=== PATIENT | male | born 1950 | race Caucasian/White ===

== ENCOUNTER → 2019-10-15 13:46 | Outpatient (CLI) | payer MEDICARE, SELFPAY ==
--- NOTE | ~2019-10-15 | MR_ITS ---
EXAMINATION: MR knee RT wo con DATE: 10/15/2019 14:36 INDICATION: Right knee pain TECHNIQUE: Magnetic resonance imaging (MRI) of the right knee was performed without intravenous contr ast. Sequences included coronal PD-weighted FSE, coronal PD-weighted FS FSE, sagittal T2-weighted FS E, sagittal PD-weighted FS FSE and axial PD weighted fat saturated FSE. COMPARISON: None. FINDINGS: Medial compartment: Complex tear at the posterior horn of the medial meniscus which extends obliquely on all 3 planes fro m the free edge to at least the junction of the middle and peripheral thirds of the meniscus. Articul ar cartilage is normal. Lateral compartment: Lateral meniscus is normal. Articular cartilage is normal. Patellofemoral compartment: Full/near full-thickness chondral ulceration at the medial side of the lateral trochlea, trochlear gr oove and extending across the medial trochlea. There is underlying cortical irregularity with both renae barticular cystic changes and small central osteophytes throughout the region of ulceration. Patellar cartilage appears relatively preserved. Ligaments and tendons: Anterior and posterior cruciate ligaments are normal. The medial collateral ligament and fibular jenna ateral ligament complex are normal. Mild distal quadriceps tendinopathy with small enthesopathic ossi cles within the tendon at its patellar insertion. Similarly there is mild proximal and distal patella r tendinopathy with large heterotopic ossicles in the distal patellar tendon which could be either en thesopathic or sequela of chronic [place]-Schlatter's disease. The visualized medial and lateral hamst ring tendons as well as the iliotibial band are normal. Fluid: Small right knee joint effusion. Small Browne's cyst. No loose osteochondral bodies identified. Osseous/other: Bone alignment is normal. No fracture or pathologic marrow replacing process. Subcutaneous varicositi es on both the medial lateral aspects of the knee. IMPRESSION: 1. Complex medial meniscal tear. 2. Extensive high-grade trochlear chondromalacia. 3. Chronic enthesopathy at the patellar and anterior tibial tuberosity insertions of the distal quadr iceps and patellar tendons. 4. Likely reactive small right knee joint effusion. Reviewed, dictated and finalized at location A. IMPRESSION: 1. Complex medial meniscal tear. 2. Extensive high-grade trochlear chondromalacia. 3. Chronic enthesopathy at the patellar and anterior tibial tuberosity insertio ns of the distal quadriceps and patellar tendons. 4. Likely reactive small right knee joint effusion.
== END ==
PROVIDERS: PCP Internal Medicine; Visit Provider Internal Medicine
DX: S83.231A Complex tear of medial meniscus, current injury, right knee, initial encounter (principal); X58.XXXA Exposure to other specified factors, initial encounter; M25.461 Effusion, right knee
CPT/HCPCS: 73721

== ENCOUNTER 2019-10-18 14:13 | Outpatient (CLI) | payer MEDICARE, SELFPAY ==
--- NOTE | ~2019-10-18 | CT_ITS ---
EXAMINATION: CTA chest PE protocol DATE: 10/18/2019 15:13 INDICATION: Shortness of breath TECHNIQUE: Computed tomography angiography (CTA) of the chest was performed with 100 mL Omnipaque-350 intravenous contrast timed to evaluate the pulmonary arteries. Coronal maximum intensity projection 3D-reconstructions were created by the technologist. The dose-length product (DLP) was 1051.15 mGy-cm . Automated exposure control and iterative reconstruction technique were employed. COMPARISON: None. FINDINGS: The pulmonary arteries are well-opacified. No pulmonary embolism is identified. There is mi ld dependent atelectasis. No pleural effusion or pneumothorax is identified. The heart size is normal . There are no pathologically enlarged thoracic lymph nodes. Calcified coronary artery atherosclerosi s is noted. There is a 2.8 cm cyst of the right kidney upper pole. There are bridging osteophytes at multiple levels in the spine, consistent with diffuse idiopathic skeletal hyperostosis (DISH). IMPRESSION: 1. No pulmonary embolism or acute cardiopulmonary abnormality. Reviewed, dictated and finalized at location A.
[2019-10-18 15:07] LABS: Estimated Glomerular Filt Rate 60
== END 2019-10-18 14:14 | disposition home or self-care (01) ==
PROVIDERS: PCP Internal Medicine; Visit Provider Internal Medicine
DX: R06.02 Shortness of breath (principal); R79.89 Other specified abnormal findings of blood chemistry; R06.09 Other forms of dyspnea
CPT/HCPCS: 36415; 71275; Q9967

== ENCOUNTER → 2020-09-09 17:52 | Outpatient (CLI) | payer MEDICARE, SELFPAY ==
--- NOTE | ~2020-09-09 | XR_ITS ---
XR shoulder RT min 2V DATE: 09/09/2020 18:09 INDICATION: Right shoulder pain TECHNIQUE: 4 views COMPARISON: 10/02/2018 right shoulder FINDINGS: There is mild right glenohumeral osteoarthritis. No fracture or dislocation, periosteal re action or bone destruction. There is mild right rotator cuff calcification, suggesting rotator cuff tendinitis. IMPRESSION: Mild right glenohumeral osteoarthritis Mild rotator cuff calcifications, suggesting possible rotator cuff tendinitis Reviewed, dictated and finalized at location B.
== END ==
PROVIDERS: PCP Internal Medicine; Visit Provider Internal Medicine
DX: S46.811A Strain of other muscles, fascia and tendons at shoulder and upper arm level, right arm, initial encounter (principal); M19.011 Primary osteoarthritis, right shoulder
CPT/HCPCS: 73030

== ENCOUNTER 2021-02-12 12:59 | Emergency (ER) | payer MEDICARE, SELFPAY ==
--- NOTE | ~2021-02-12 | XR_ITS ---
EXAMINATION: XR knee LT 3V DATE: 02/12/2021 13:31 INDICATION: Lateral left knee pain with palpable pop while stretching TECHNIQUE: AP, lateral and sunrise of the left knee were obtained COMPARISON: None. FINDINGS: No fracture. Severe joint space narrowing at the lateral aspect of the patellofemoral compartment wit h 5 mm lateral patellar subluxation. Alignment is otherwise normal. Moderate joint space narrowing in the medial compartment and moderate size marginal osteophytes in all 3 compartments. No left knee bony int effusion. Basilar calcific a cyst along the popliteal artery extending to the arteries of the vis ualized proximal calf. Soft tissues are otherwise unremarkable. IMPRESSION: 1. Left knee tricompartmental osteoarthritis, severe at the lateral side of the patellofemoral compar tment Reviewed, dictated and finalized at location A. IMPRESSION: 1. Left knee tricompartmental osteoarthritis, severe at the lateral side of the patellofemoral compartment
--- NOTE | 2021-02-12 13:10 | ED.GENADULT ---
HPI - General Adult General Chief complaint: Extremity Problem,Nontraumatic Stated complaint: Left Knee Pain Source: patient Mode of arrival: ambulatory Limitations: no limitations History of Present Illness HPI narrative: 70 y/o male. PMHx COPD, HTN, A-FIB (On oral Eliquis regimen), DM II, CKD, Obesity, KAN. Presents to [facility] today with acute complaints LT knee pain, worsening in the past 1 week. Pt reports to have been sitting in a chair at his dining table, when he reached up toward the counter to grab an item from it, and felt a sudden sharp pain to his lateral knee. He tells me the pain has been present since, intermittent, and worse when he bends his knee. The pain is slightly improved when he straightens his leg. No falls or bony injury has been relayed. No calf pain, dyspnea, palpitations, chest pain, dyspnea. No loss of lower extremity sensation or control. He has been taking home Tylenol with some relief. No additional acute c/o illness has been relayed upon PE. Related Data Home Medications Medication Instructions Recorded Confirmed blood sugar diagnostic #10 each 04/10/19 09/25/20 fluticasone propionate 50 1 spray NASAL DAILY 04/10/19 02/12/21 mcg/actuation nasal spray,suspension glucosamine 375 [id number] 1 tablet PO DIRECTED 04/10/19 02/12/21 no1 500 mg-C 15 mg-jazzy 0.5 mg tablet papaverine 30 mg-phentolamine 1 1 ml I-CAVERN DIRECTED 04/10/19 02/12/21 mg/mL in water intracavernosal soln rivaroxaban 20 mg tablet 20 mg PO QPM 04/10/19 02/12/21 testosterone 2 pump TRANSDERM DAILY gm 06/14/19 02/12/21 Allergies Allergy/AdvReac Type Severity Reaction Status Date / Time Quinolones Allergy Intermediate halucinatio Verified 02/12/21 13:07 ns aspirin Allergy Unknown Unknown Verified 02/12/21 13:07 ibuprofen Allergy Unknown Anaphylaxis Verified 02/12/21 13:07 ketoprofen Allergy Unknown angioedema Verified 02/12/21 13:07 and diarrhea Sulfa (Sulfonamide Allergy Unknown Unknown Verified 02/12/21 13:07 Antibiotics) sulfamethizole Allergy Unknown Unknown Verified 02/12/21 13:07 trimethoprim Allergy Unknown Unknown Verified 02/12/21 13:07 HYDROCODONE BIT Allergy Unknown vomiting Uncoded 02/12/21 13:07 blood Review of Systems Review of Systems: CONSTITUTIONAL: Denies fever, chills, sweats. EYES: Denies visual changes, redness, discharge. ENT: Denies rhinorrhea, congestion, sore throat, otalgia. CARDIOVASCULAR: Denies chest pain, palpitations, edema. RESPIRATORY: Denies dyspnea, wheezing, cough GASTROINTESTINAL: Denies abdominal pain, nausea, vomiting, diarrhea. GENITOURINARY: Denies dysuria, hematuria, abnormal discharge SKIN: Denies rash or itching. MUSCULOSKELETAL: Denies acute back pain, or myalgia. Left knee pain. NEUROLOGIC: Denies numbness, or focal weakness. PSYCHIATRIC: Denies anxiety or depression. All systems reviewed & are unremarkable except as noted in HPI and below PMFSH Past Medical History Medical History (Updated 02/12/21 @ 13:49 by MEHDI Rosas) Abnormal results of kidney function studies Afib Angioedema Asthma Benign essential HTN Bradycardia CVA (cerebral vascular accident) HTN (hypertension) Family History Family History Mother Family history of congestive heart failure Social History Social History Smoking status: Never smoker Alcohol intake: current Drinks per week: 2 Alcohol use details: occasionally, beer Substance use: never Substance use type: does not use Gender identity (if verbalized by the patient): Male Exam Narrative: GENERAL: This is a well-nourished, well-developed adult, in no apparent distress. HEAD: normocephalic. EYES: PERRL. EARS: External ears normal. NOSE: External nose normal. THROAT: Mucous membranes moist. NECK: Neck sup
[2021-02-12 13:12] VITALS: BP 130/69; PULSE 101; RESP 20; TEMP 36.6; O2SAT 98
== END 2021-02-12 14:05 | disposition home or self-care (01) ==
PROVIDERS: Emergency Provider Nurse Practitioner Adult Health; PCP Internal Medicine
DX: S83.92XA Sprain of unspecified site of left knee, initial encounter (principal); X50.9XXA Other and unspecified overexertion or strenuous movements or postures, initial encounter; J44.9 Chronic obstructive pulmonary disease, unspecified; I48.91 Unspecified atrial fibrillation; Z79.01 Long term (current) use of anticoagulants; I12.9 Hypertensive chronic kidney disease with stage 1 through stage 4 chronic kidney disease, or unspecified chronic kidney disease; E11.22 Type 2 diabetes mellitus with diabetic chronic kidney disease; N18.9 Chronic kidney disease, unspecified; E66.9 Obesity, unspecified; G47.33 Obstructive sleep apnea (adult) (pediatric); Z86.73 Personal history of transient ischemic attack (TIA), and cerebral infarction without residual deficits
CPT/HCPCS: 73562; 99213; G0463; L1830

== ENCOUNTER → 2021-04-28 02:49 | Outpatient (CLI) | payer MEDICARE, SELFPAY ==
[2021-04-29 20:49] LABS: SARS-CoV-2 RNA PCR Positive
== END ==
PROVIDERS: PCP Internal Medicine; Visit Provider Internal Medicine
DX: U07.1 COVID-19 (principal)
CPT/HCPCS: C9803; U0003; U0005

== ENCOUNTER → 2021-06-15 09:29 | Outpatient (CLI) | payer MEDICARE, SELFPAY ==
[2021-06-15 17:03] LABS: SARS-CoV-2 RNA PCR Negative
== END ==
PROVIDERS: PCP Internal Medicine; Visit Provider Internal Medicine
DX: R68.89 Other general symptoms and signs (principal); Z20.822 Contact with and (suspected) exposure to COVID-19
CPT/HCPCS: C9803; U0003; U0005

== ENCOUNTER 2021-06-15 19:51 | Inpatient (IN) | payer MEDICARE, SELFPAY ==
[2021-06-15] VITALS (11 sets, daily range): BP systolic 90–164; BP diastolic 58–88; PULSE 105–132; RESP 17–28; TEMP 37.3–39.6; O2SAT 93–96
--- NOTE | ~2021-06-15 | XR_ITS ---
EXAMINATION: XR chest 1V portable INDICATION: Cough and fever TECHNIQUE: Portable AP chest at 2142 hours COMPARISON: 10/02/2018 FINDINGS: There are bilateral perihilar opacities and opacities of the mid and lower lung zones. No p leural effusion or pneumothorax is identified. The cardiomediastinal silhouette is stable. IMPRESSION: 1. Bilateral perihilar and mid and lower lung zone opacities, consistent with pneumonia/or pulmonary edema. Reviewed, dictated and finalized at location F. DESIGNER IMPRESSION: 1. Bilateral perihilar and mid and lower lung zone opacities, consistent with p neumonia/or pulmonary edema.
--- NOTE | ~2021-06-15 | CT_ITS ---
EXAMINATION: CT chest abdomen pelvis wo con DATE: 06/18/2021 13:54 INDICATION: Hematuria. Fever. TECHNIQUE: Computed tomography (CT) of the chest, abdomen, and pelvis was performed without intraveno us contrast. Automated exposure control and iterative reconstruction technique were employed. The dos e-length product was 2121.74 mGy-cm. COMPARISON: Chest CT 10/18/2019, CT abdomen and pelvis 03/01/2019 FINDINGS: CHEST CT: There is mild atelectasis in the lungs. There are airspace opacities and groundglass opacities in api coposterior segment left upper lobe and left lower lobe with air bronchograms, consistent with pneumo matthew. There are small pleural effusions. The heart size is normal. There are coronary artery calcifica tions. No pericardial effusion. There are bridging endplate osteophytes at multiple levels in the spi ne, consistent with diffuse idiopathic skeletal hyperostosis (DISH). ABDOMEN/PELVIS CT: The liver, gallbladder, spleen, pancreas, adrenal glands, and left kidney are normal. There is a 3.1 cm cyst in right kidney. There is no urolithiasis. The prostate is mildly enlarged. There is divertic ulosis of the colon without evidence of diverticulitis. There are no dilated loops of bowel. The appe ndix is not visualized. There are no pathologically enlarged lymph nodes. There is no free intraperit maddox fluid. There is lumbar levoscoliosis and severe spondylosis. IMPRESSION: 1. Left-sided pneumonia. 2. Small pleural effusions. Reviewed, dictated and finalized at location A. RHOUSE ELECTRICIAN APPRENTICE
--- NOTE | ~2021-06-15 | XR_ITS ---
EXAMINATION: XR chest 1V portable EXAM DATE: 06/20/2021 13:49 INDICATION: SOB TECHNIQUE: Portable AP frontal chest x-ray was obtained. Comparison is made to prior examination from 06/17/2021. FINDINGS: Some ill-defined bilateral suprahilar and left lower lobe airspace disease, edema or pneumo matthew. Improvement in the previously seen right-sided airspace disease. No sizable pleural effusion. No pneumothorax. The cardiomediastinal silhouette is prominent but magnified on this AP technique. Ther e is no pneumothorax suspected. There are no osseous abnormalities identified. IMPRESSION: Bilateral pneumonia or edema with interval improvement. Reviewed, dictated and finalized at location A. TRADES ASSISTANTS
--- NOTE | ~2021-06-15 | XR_ITS ---
EXAMINATION: XR chest 1V portable DATE: 06/17/2021 09:19 INDICATION: Pneumonia, cough and fever TECHNIQUE: frontal view of the chest was obtained. COMPARISON: Chest radiograph dated 06/15/21 FINDINGS: Persistent opacities in the bilateral mid and lower lung zones most prominent in the left perihilar r egion. No pleural effusion or pneumothorax. The cardiomediastinal silhouette is normal. IMPRESSION: 1. No significant change in opacities in bilateral mid and lower lung zones with left perihilar predo minance consistent with pneumonia and/or pulmonary edema. Reviewed, dictated and finalized at location A. TRICAL ASSISTANT IMPRESSION: 1. No significant change in opacities in bilateral mid and lower lung zones wit h left perihilar predominance consistent with pneumonia and/or pulmonary edema.
--- NOTE | 2021-06-15 21:28 | ECG_ITS ---
Measurements Intervals Gepp Rate: 107 P: RI: 0 QRS: 1 QRSD: 117 T: 24 QT: 346 QTc: 464 Interpretive Statements ATRIAL FIBRILLATION WITH RAPID VENTRICULAR RESPONSE INTRAVENTRICULAR CONDUCTION DELAY BASELINE ARTIFACT- I, II, III, AVR, AVL, AVF, V2-V6 ABNORMAL ECG Electronically Signed On 06-16-2021 6:16:16 [employer]CISION FARMING SPECIALIST by Charlie Gonzalez D.O.
--- NOTE | 2021-06-15 21:30 | ED.FEVER ---
HPI - Fever General Chief Complaint: Fever Stated Complaint: headach, fever, vomiting Time Seen by Provider: 06/15/21 21:21 Source: patient Mode of arrival: ambulatory Limitations: no limitations History of Present Illness HPI Narrative: Patient is a 71-year-old male complaining of fever, shortness of breath, body aches, cough, headache and nausea started 3 days ago. Patient states that the shortness of breath is worse with exertion. Patient states that he had a rapid Covid test today and it was negative. Patient states that he is fully vaccinated from COVID along with a booster. Related Data Home Medications Medication Instructions Recorded Confirmed blood sugar diagnostic #10 each 04/10/19 09/25/20 fluticasone propionate 50 1 spray NASAL DAILY 04/10/19 02/12/21 mcg/actuation nasal spray,suspension glucosamine 375 [id number] 1 tablet PO DIRECTED 04/10/19 02/12/21 no1 500 mg-C 15 mg-jazzy 0.5 mg tablet papaverine 30 mg-phentolamine 1 1 ml I-CAVERN DIRECTED 04/10/19 02/12/21 mg/mL in water intracavernosal soln rivaroxaban 20 mg tablet 20 mg PO QPM 04/10/19 02/12/21 testosterone 2 pump TRANSDERM DAILY gm 06/14/19 02/12/21 Allergies Allergy/AdvReac Type Severity Reaction Status Date / Time aspirin Allergy Severe Swelling Verified 06/15/21 20:15 of Lip/Tongue/Throat ibuprofen Allergy Severe Anaphylaxis Verified 06/15/21 20:15 ketoprofen Allergy Severe angioedema Verified 06/15/21 20:15 and diarrhea Quinolones Allergy Intermediate halucinatio Verified 06/15/21 20:15 ns Sulfa (Sulfonamide Allergy Unknown Unknown Verified 06/15/21 20:15 Antibiotics) sulfamethizole Allergy Unknown Unknown Verified 06/15/21 20:15 trimethoprim Allergy Unknown Unknown Verified 06/15/21 20:15 HYDROCODONE BIT Allergy Severe vomiting Uncoded 06/15/21 20:15 blood Review of Systems Review of Systems: All systems reviewed & are unremarkable except as noted in HPI and below Constitutional: Constitutional: Denies excessive sweating, Denies fatigue, Denies lethargy, Denies weakness and Denies weight loss Eyes: Eyes: Denies blurry vision, Denies change in vision and Denies loss of vision ENT: Denies dizziness, Denies ear discharge, Denies headache(s), Denies lip swelling, Denies epistaxis, Denies nasal congestion, Denies neck pain, Denies throat swelling and Denies tongue swelling Cardiovascular: Cardiovascular: Denies chest pain, Denies chest pain at rest, Denies chest pain with activity, Denies diaphoresis, Denies rapid heart rate, Denies edema, Denies irregular heart rhythm, Denies lightheadedness and Denies palpitations Respiratory: Respiratory: Denies chest congestion and Denies hemoptysis Gastrointestinal: Gastrointestinal: Denies abdominal pain, Denies melena, Denies hematochezia, Denies diarrhea, Denies nausea, Denies vomiting and Denies hematemesis Musculoskeletal: Musculoskeletal: Denies abnormal gait, Denies deformity, Denies joint swelling, Denies limited range of motion, Denies neck pain and Denies numbness Neurologic: Denies Abnormal speech present, Denies abnormal gait, Denies confusion, Denies dizziness, Denies focal weakness, Denies loss of vision, Denies numbness, Denies Other visual disturbances, Denies Sensory deficit (Neuro) and Denies weakness Psychiatric: Psychiatric: Denies confusion, Denies depression, Denies auditory hallucinations, Denies homicidal ideation and Denies suicidal ideation Endocrine: Endocrine: Denies cold intolerance, Denies excessive sweating, Denies fatigue, Denies heat intolerance and Denies palpitations Hematologic/Lymphatic: Hematologic/Lymphatic: Denies easy bleeding and Denies easy bruising Allergic/Immunologic: Allergic/Immunologic: Denies lip swelling, Denies throat swelling and Denies tongue swelling PMFSH Past Medical History Medical History (Updated 06/15/21 @ 23:22 by Isak Jensen MD) Abnormal results of kidney function studies Lottie
[2021-06-15] MEDS: ACETAMINOPHEN 500 MG TABLET 1000 MG PO (21:36)
[2021-06-15] MEDS: SODIUM CHLORIDE 0.9% IV 1,000 ML 999 ML IV CONT (21:36)
[2021-06-15 22:28] LABS: Basophils Absolute Auto 0.1 K/mm3 (0.0-0.1); Basophils Percent Auto 0.4 % (0.2-1.2); Hematocrit 44.6 % (42.0-52.0); Hemoglobin 15.1 g/dL (14.0-18.0); Immature Granulocyte Absolute 0.08 K/mm3 (0.00-0.031); Immature Granulocyte Percent A 0.6 % (0-0.5); Lymphocytes Absolute Auto 0.66 K/mm3 (0.9-3.2); Lymphocytes Percent Auto 4.9 % (18.3-44.2); Mean Corpuscular HGB Conc 33.9 g/dl (32-36); Mean Corpuscular Hemoglobin 30.8 pg (26-34); Mean Platelet Volume 9.8 fl (7.4-10.4); Monocytes Absolute Auto 1.7 K/mm3 (0.1-0.6); Monocytes Percent Auto 12.6 % (2.6-8.5); Neutrophils Absolute Auto 11.1 K/mm3 (1.3-6.7); Neutrophils Percent Auto 81.5 % (45.5-73.1); Platelet Count Result 208 k/mm3 (150-375); Red Cell Distribution Width 14.1 % (11.5-14.5); White Blood Count 13.6 K/mm3 (4.5-10.0)
[2021-06-15 22:33] LABS: Add Urine Microscopic? YES; Appearance Urine Clear (Clear); Bilirubin Urine Negative (Negative); Blood Urine 2+ (Negative); Color Urine Amber (Yellow); Glucose Urine UA Negative (Negative); Ketones Urine Trace mg/dL (Negative); Leukocyte Esterase Ur Negative LEU/UL (Negative); Mucus Urine Rare /lpf; Nitrate Urine Negative (Negative); Protein Urine 2+ mg/dL (Negative); Specific Grav Ur 1.026 (1.001-1.035); Squamous Epithelial Cell Urine Rare /hpf (Few); WBC Urine 0-3 /hpf
[2021-06-15 22:43] LABS: INR 1.4; Prothrombin Time 16.4 Seconds (11.1-14.7)
[2021-06-15 22:44] LABS: Partial Thromboplastin Time 35.4 SECONDS (22.3-36.8)
[2021-06-15 22:55] LABS: Alanine Aminotransferase 27 U/L (4-50); Albumin Level 3.9 g/dL (3.5-5.1); Alkaline Phosphatase 68 U/L (38-126); Anion Gap 11 mmol/L (8-16); Aspartate Amino Transferase 41 U/L (17-59); Bilirubin,Total 1.2 mg/dL (0.2-1.3); Blood Urea Nitrogen 24 mg/dL (9-20); CRP 26.4 mg/dL (<1.0); Calcium 8.7 mg/dL (8.4-10.2); Carbon Dioxide 19 mmol/L (22-30); Chloride 100 mmol/L (98-107); Estimated CRCL calculation 75 ml/min; Estimated Glomerular Filt Rate 60; Glucose 163 mg/dL (65-110); Potassium 3.8 mmol/L (3.4-5.0); Sodium 130 mmol/L (137-145)
[2021-06-15 23:12] LABS: SARS-CoV-2 RNA PCR Negative
--- NOTE | 2021-06-15 23:14 | PC.NURSE ---
Assuming care of pt.
[2021-06-16] VITALS (31 sets, daily range): BP systolic 103–145; BP diastolic 57–89; PULSE 89–116; RESP 14–26; TEMP 36.9–38.7; O2SAT 93–98; BMI 43.5
[2021-06-16] MEDS: DEXAMETHASONE SOD PHOS INJ 4 MG/ML VIAL 10 MG IV PUSH (00:18)
[2021-06-16] MEDS: ALBUTEROL SULFATE NEB 2.5 MG/0.5 ML INH 5 MG INHALATION ×2 (02:05→08:51)
[2021-06-16] MEDS: IPRATROPIUM BR 0.02% INH SOLN 0.5 MG/2.5 ML VIAL INHALATION ×4 (02:05→19:46)
--- NOTE | 2021-06-16 05:01 | PC.NURSE ---
03:17 This patient, Devante Mitchell, was admitted to IMU status, and placed in Intensive Care Unit-4. Patient/family oriented to hospital policies and general routines including ID bracelet, bed and alarms, visiting hours, pain management, procedures, bathroom and other care routines, personal items, smoking policy, room service/diet, and visiting hours. Valuables list has been completed. Information on how to activate the Rapid Response Team has been discussed. Patient/Family are encouraged to report perceived risks to care and to ask questions if they do not understand what they are told or what they should do.
--- NOTE | 2021-06-16 11:07 | PM.IMHP ---
H&P: HPI History of Present Illness Date/Time: PATIENT TO BE ADMITTED UNDER OBSERVATION STATUS 06/16/21 11:07 Chief Complaint: Fever Narrative: 71yo male with asthma, chronic AFib on anticoag, HTN and KAN here for fevers. About 4 days prior to admission, patient developed headaches. A day or so later he developed fevers to as high as 103 at home. He feels diffusely weak. He was short of breath with exertion. No chest pain. No cough. He has some mild pedal edema but this is chronic. He has been feeling malaise. No anosmia or dysgeusia. He has had COVID vaccine with the booster with the last vaccine given in February. He is up-to-date on his flu vaccine. This been no sick contacts. No recent travels. No myalgias. Denies any dysuria or hematuria. No urinary frequency or urgency. He does complain of mid back pain which is new. No abdominal pain. He does feel nauseous and has had decreased oral intake over the past few days. He has had emesis but no hematemesis. No diarrhea constipation issues. No odynophagia or dysphagia. Sinus symptoms or URI symptoms. He has been diaphoretic this has been associated with fever. His symptoms progressed and he presented to the emergency room for evaluation. In the emergency room, he had a fever to 103.2 and a pulse rate of 132. He was tachypneic rate 28. White count elevated at 13.6 K. CRP was 26.4. Influenza was negative. COVID nasal swab was negative. UA had 2+ blood with 11-20 red cells but no white blood cells. Lactic acid was normal but his serum bicarb was 19 with a normal gap. Chest x-ray showed bilateral perihilar and mid and lower lung zone opacities consistent with pneumonia. Blood cultures were collected. He was given Rocephin and azithromycin. He was admitted for further care. Review of Systems Review of Systems: All systems reviewed & are unremarkable except as noted in HPI and below PMFSH Past Medical History Medical History (Updated 06/18/21 @ 17:22 by Pierre Stevens MD) Abnormal results of kidney function studies Afib chronic. Angioedema Associated with ASA and NSAIDs Asthma Benign essential HTN CVA (cerebral vascular accident) September 2018 with residual vision loss Hypogonadism Type 2 diabetes mellitus without complication, without long-term current use of insulin Family History Family History (Updated 06/16/21 @ 11:30 by Pierre Stevens MD) Mother Mesothelioma Father Family history of congestive heart failure Social History Social History (Updated 06/16/21 @ 11:31 by Pierre Stevens MD) Social History: Patient lives with his Lena. He is a full code. He smoked cigars until about 1987. Smoked 1-2 cigars per week on occasion. No drug use. Drinks 2 alcoholic drinks per week. Smoking status: Former smoker Alcohol intake: current Drinks per week: 2 Alcohol use details: occasionally, beer Substance use: never Substance use type: does not use Gender identity (if verbalized by the patient): Male Spiritual care concerns: No Meds Home Medications and Allergies Home Medications Medication Instructions Recorded Confirmed Type fluticasone propionate 50 1 spray NASAL DAILY 04/10/19 06/16/21 History mcg/actuation nasal spray,suspension glucosamine 375 [id number] 1 tablet PO DIRECTED 04/10/19 06/16/21 History no1 500 mg-C 15 mg-jazzy 0.5 mg tablet papaverine 30 mg-phentolamine 1 1 ml I-CAVERN DIRECTED 04/10/19 06/16/21 History mg/mL in water intracavernosal soln rivaroxaban 20 mg tablet 20 mg PO QPM 04/10/19 06/16/21 History testosterone 2 pump TRANSDERM DAILY gm 06/14/19 06/16/21 History albuterol sulfate 90 mcg/actuation 2 puff INHALATION Q4H PRN #6.7 g 07/01/20 06/16/21 Rx aerosol inhaler betamethasone valerate 0.1 % 1 applic TOPICAL DAILY PRN #45 g 09/25/20 06/16/21 Rx topical cream montelukast 10 mg tablet 10 mg PO DAILY #90 tablet 12/01/20 06/16/21 Rx
[2021-06-16 12:24] LABS: Glucose Point of Care 199 mg/dl (65-105)
[2021-06-16] MEDS: METOPROLOL SUCCINATE EXT REL 25 MG TABCR PO (12:29)
[2021-06-16] MEDS: ALBUTEROL SULFATE NEB 2.5 MG/0.5 ML INH INHALATION ×2 (14:48→19:46)
[2021-06-16 15:21] LABS: Creatinine Urine 167.7 mg/dL
[2021-06-16 15:26] LABS: Sodium Urine Random 14 meq/L
[2021-06-16] MEDS: RIVAROXABAN 20 MG TABLET PO (17:15)
[2021-06-16 17:57] LABS: Glucose Point of Care 142 mg/dl (65-105)
[2021-06-16] MEDS: AZITHROMYCIN 250 MG TABLET PO (20:42)
[2021-06-16] MEDS: ACETAMINOPHEN 325 MG TABLET 650 MG PO (20:42)
[2021-06-16 20:53] LABS: Glucose Point of Care 176 mg/dl (65-105)
[2021-06-17] VITALS (30 sets, daily range): BP systolic 132–154; BP diastolic 69–100; PULSE 88–155; RESP 14–26; TEMP 36.9–39.6; O2SAT 91–97
--- NOTE | 2021-06-17 | ECHO_ITS ---
Patient Info Name: Devante Mitchell Age: 71 years : 1950 Gender: Male Ht: 74 in Wt: 352 lbs BSA: 2.96 m2 HR: 123 bpm BP: 154 / 100 mmHg Heart Rhythm: Atrial Fibrillation Exam Date: 06/17/2021 1:44 PM Exam Location: [facility] Patient Status: Inpatient Admit Date: 06/17/2021 Staff Ordering Physician: Angelo Hutchinson MD Button Sewer: Colby Serra, SALINACS, RT Attending Provider: Marco A Kim MD Referring Physician: Jasper RÍOS; Exam Type: CA echo doppler color flow Study Info Indications I48.1 - Persistent atrial fibrillation R06.02 - Shortness of breath Complete two-dimensional, color flow and Doppler transthoracic echocardiogram is performed with contrast to opacify the left ventricle and to improve the deliniation of the left ventricle endocardial borders. Summary 1. Technically very difficult exam because of obesity. 2. Definity contrast injected to improve visualization of the left ventricle. 3. Normal appearing left ventricular systolic function. 4. Severely dilated left atrium. 5. Calcified mitral valve annulus. 6. Mild MR. Left Ventricle Left ventricular chamber dimension is normal. Left ventricular systolic function is normal, estimated at 50-55%. The left ventricular diastolic function is indeterminate. Right Ventricle Right ventricular chamber dimension is normal. Left Atria Left atrial chamber dimension is severely enlarged. Right Atria Right atrial chamber dimension is not well visualized. Aortic Valve The aortic valve is not well visualized. Pulmonic Valve The pulmonic valve is not well visualized. Mitral Valve The mitral valve has not well visualized. There is mild mitral valve regurgitation. Tricuspid Valve The tricuspid valve leaflets are not well visualized. Pericardium/Pleural The pericardium appears normal. Aorta The aortic root size at the sinus of Valsalva is not well visualized. Left Ventricular Outflow Tract Name Value Normal LVOT Doppler LVOT Peak Gradient 2 mmHg LVOT Mean Gradient 1 mmHg LVOT VTI 10 cm LVOT VTI/AV VTI Ratio 0.5 Mitral Valve Name Value Normal MV Doppler MV Decel [place] 771 cm/s2 MV PHT 43 ms MV Area (PHT) 5.1 cm2 4.0-5.0 MV Diastolic Function MV E Peak Velocity 115 cm/s MV A Peak Velocity 1 cm/s MV E/A 201.1 MV Decel Time 149 ms MV Annular TDI MV E/e' (Septal) 11.5 <=8.0 MV E/e' (Lateral) 8.0 <=8.0 MV E/e' (Average)
[2021-06-17] MEDS: ALBUTEROL SULFATE NEB 2.5 MG/0.5 ML INH INHALATION ×2 (01:45→08:12)
[2021-06-17] MEDS: IPRATROPIUM BR 0.02% INH SOLN 0.5 MG/2.5 ML VIAL INHALATION ×4 (01:45→20:28)
[2021-06-17 04:35] LABS: Basophils Percent Auto 0.3 % (0.2-1.2); Hematocrit 48.5 % (42.0-52.0); Hemoglobin 16.3 g/dL (14.0-18.0); Immature Granulocyte Absolute 0.05 K/mm3 (0.00-0.031); Immature Granulocyte Percent A 0.4 % (0-0.5); Lymphocytes Absolute Auto 0.99 K/mm3 (0.9-3.2); Lymphocytes Percent Auto 8.5 % (18.3-44.2); Mean Corpuscular HGB Conc 33.6 g/dl (32-36); Mean Corpuscular Hemoglobin 30.7 pg (26-34); Mean Corpuscular Volume 91.3 fl (80-100); Mean Platelet Volume 10.1 fl (7.4-10.4); Monocytes Absolute Auto 1.6 K/mm3 (0.1-0.6); Monocytes Percent Auto 13.6 % (2.6-8.5); Neutrophils Percent Auto 77.2 % (45.5-73.1); Platelet Count Result 232 k/mm3 (150-375); Red Blood Count 5.31 M/mm3 (4.6-6.20); Red Cell Distribution Width 14.5 % (11.5-14.5); White Blood Count 11.7 K/mm3 (4.5-10.0)
[2021-06-17 04:55] LABS: Anion Gap 7 mmol/L (8-16); Blood Urea Nitrogen 30 mg/dL (9-20); Calcium 8.4 mg/dL (8.4-10.2); Carbon Dioxide 29 mmol/L (22-30); Chloride 98 mmol/L (98-107); Creatine Kinase 464 U/L (55-170); Estimated CRCL calculation 80 ml/min; Estimated Glomerular Filt Rate 60; Glucose 150 mg/dL (65-110); Magnesium 2.5 mg/dL (1.6-2.3); Sodium 134 mmol/L (137-145)
[2021-06-17 05:03] LABS: CRP 25.2 mg/dL (<1.0)
[2021-06-17] MEDS: PRAVASTATIN SODIUM 20 MG TABLET PO (07:32)
[2021-06-17] MEDS: METOPROLOL SUCCINATE EXT REL 25 MG TABCR PO (07:32)
[2021-06-17] MEDS: MONTELUKAST SODIUM 10 MG TABLET PO (07:32)
[2021-06-17] MEDS: ACETAMINOPHEN 325 MG TABLET 650 MG PO ×3 (07:35→22:04)
[2021-06-17 08:15] LABS: Glucose Point of Care 144 mg/dl (65-105)
[2021-06-17] MEDS: METOPROLOL TARTRATE INJ 5 MG/5 ML VIAL IV PUSH (09:45)
[2021-06-17 12:44] LABS: Glucose Point of Care 192 mg/dl (65-105)
--- NOTE | 2021-06-17 13:08 | PM.IMPN ---
Progress Note: A&P Assessment and Plan (1) Sepsis: Code(s): A41.9 - Sepsis, unspecified organism Status: Acute Assessment and Plan: Sepsis present on admission with tachycardia, fever, tachypnea, leukocytosis and elevated CRP. Omega source of sepsis is pneumonia. Now with septicemia although consider contaminant as well. Blood cultures (1of2) positive for gram positive cocci in clusters. Continue Rocephin and azithromycin; add Vancomycin. Follow-up on blood and sputum culture results. Consider repeating BCx depending on the ID. Legionella and pneumococcal antigen pending. Monitor fever curve. If persistent fevers, consider Primaxin to cover Pseudomonas and/or ESBL. (2) Pneumonia: Qualifiers: Laterality: bilateral Lung location: unspecified part of lung Pneumonia type: due to unspecified organism Qualified Code(s): J18.9 - Pneumonia, unspecified organism Code(s): J18.9 - Pneumonia, unspecified organism Status: Acute Assessment and Plan: Chest x-ray reviewed personally. Most likely bacterial pneumonia. Patient without significant respiratory symptoms initially but now having cough. As above. (3) Atrial fibrillation with RVR: Code(s): I48.91 - Unspecified atrial fibrillation Status: Acute Assessment and Plan: Patient has chronic atrial fibrillation. He is intermittently tachycardia which is appropriate under the clinical situation (fevers). Continue to control his fever. Continue his metoprolol and Xarelto. Continue to monitor on telemetry. (4) Hyponatremia: Code(s): E87.1 - Hypo-osmolality and hyponatremia Status: Acute Assessment and Plan: Na 130. Could be related to HCTZ so this was held. Uine Na 14 with FENa 0.07%. He did receive fluids in the ED. Repeat Na 134 today. Follow. (5) Obstructive sleep apnea: Code(s): G47.33 - Obstructive sleep apnea (adult) (pediatric) Status: Chronic Assessment and Plan: Patient with obstructive sleep apnea and is compliant with his CPAP at home. Continue the same here. (6) Type 2 diabetes mellitus without complication, without long-term current use of insulin: Code(s): E11.9 - Type 2 diabetes mellitus without complications Status: Acute Assessment and Plan: Patient has diet-controlled DM. Last A1c was 6.4 in March. The patient's blood glucose was reviewed on 06/17 Glucose remains well controlled. Continue AccuCheks covering with sliding scale. Hypoglycemia protocol available as needed. Continue to monitor (7) Asthma: Code(s): J45.909 - Unspecified asthma, uncomplicated Status: Acute Assessment and Plan: No wheezing. Dexamethasone 10mg x 1 was given in the ED. Will hold his fluticasone and budesonide given that he has pneumonia. No peripheral eosinophilia noted. Continue to monitor. (8) Morbid (severe) obesity due to excess calories: Code(s): E66.01 - Morbid (severe) obesity due to excess calories Status: Acute Assessment and Plan: BMI 44. This is contributing to his other medical problems. Healthy lifestyle was encouraged. (9) DVT prophylaxis: Code(s): Z29.9 - Encounter for prophylactic measures, unspecified Status: Acute Assessment and Plan: Elaine Carranza Date/time seen: 06/17/21 13:08 Interval history: 71yo male with asthma, chronic AFib on anticoag, HTN and KAN here for fevers. Patient slept poorly related to noise. Having fevers again. Feels worse today. Cough is nagging. Exam Narrative: Tm 103.3 138/69 115 21 91% ra Gen - NARD but appears uncomfortable Chest - basilar rhonchi o/w clear, nml RR CV - irregularly irregular. Tele showing AFib with RVR Abd - soft, obese, NT Ext - no pedal edema Psych - normal mood and affect. Skin - warm and dry Objective Data Vital Signs Vital Signs: Vital Signs - 24 hr 06/16/21 14:00 06/16/21 14:50
[2021-06-17] MEDS: PERFLUTREN LIPID MICROSPHERES 1.5 ML VIAL DILUTED TO 10 ML TOTAL VOLUME IV PUSH (13:46)
--- NOTE | 2021-06-17 13:47 | IVDEFINITY ---
Prior to administration of IV Definity the patient was educated on the risks and benefits of the imaging enhancing agent including potential adverse side effects. The patient verbalized understanding. Allergies were verified. No exclusion criteria were identified and at least one of the following inclusion criteria were met: 1) physician request, 2) patient technically difficult to image (per the [place] [employer] guidelines of two or more segments not discernable within the apical view), or 3) questionable left ventricular function. ?
[2021-06-17] MEDS: guaiFENesin 12 HR 600 MG TABCR PO ×2 (14:09→21:45)
[2021-06-17] MEDS: PANTOPRAZOLE SODIUM IV 40 MG VIAL IV PUSH ×2 (14:10→21:45)
--- NOTE | 2021-06-17 14:56 | PCPTNOTE ---
Attempted PT evaluation, Per RN, patient needs to be held today due to HR being 180 bpm. Will continue to follow as patient can tolerate.
--- NOTE | 2021-06-17 16:16 | PM.CNCAR ---
Assessment and Plan Additional Plan This is a 71-year-old man with obesity hypoventilation sleep apnea syndrome with chronic atrial fibrillation as a result of that. Normally is quite stable on a modest dose of metoprolol and anticoagulation with Xarelto. He presents to the hospital with significant fever and in this setting his heart rate is more accelerated. I am going to try initially just advancing his metoprolol dosage and follow this along with you. At this point there are no other cardiac recommendations to make from what I can see. Rickey Pinto MD [facility] History of Present Illness History of Present Illness Consult date/time: 06/17/21 16:16 Consult reason: atrial fibrillation Reason For Visit: Pneumonia, Atrial Fib with RVR Narrative: This is a 71-year-old man who I know with a history of chronic atrial fibrillation for about 3 years. He is being seen in the request of the hospitalist today in the hospital because of rapid ventricular response at times. The patient does not have any cardiovascular symptoms at this time. I saw him initially in 2019 when he was in the hospital for noncardiac reasons and found to be in atrial fib. The patient does have morbid obesity and sleep apnea and this has etiology of his atrial fibrillation. At the time of initial diagnosis because he was asymptomatic and had no other structural cardiac problems rate control and anticoagulation strategy was chosen. He does see me in the office regularly for follow-up and has been asymptomatic. He only requires a very modest dose of metoprolol for rate control at 25 mg daily and he is anticoagulated with Xarelto. He came into the hospital yesterday because of fevers which began last week on . He states on through until this admission he has been having for a fevers every day between 101 and up over 103? F. he has been evaluated in the hospital so far his blood cultures on 1 bottle appears to be positive for Gram-positive cocci and a anaerobic bottle. His has noted that his urine looks very dark and somewhat bloody today. He is laying in his bed with his CPAP device on resting comfortably when I came in the room to see him. Apparently we have been consulted because when he is not at bed rest his heart rate becomes rapidly accelerated with heart rates in excess of 150. Lying supine in bed relaxing at this time is heart rate is 110. An echocardiogram has been ordered by the hospitalist service which was done earlier today and results are pending. Review of Systems Constitutional: Constitutional: Reports no additional constitutional complaints Eyes: Eyes: Reports no additional eye complaints ENT: Reports system reviewed and no additional complaints, except as documented Cardiovascular: Cardiovascular: Reports no additional cardiovascular complaints Respiratory: Respiratory: Reports no additional respiratory complaints Gastrointestinal: Gastrointestinal: Reports no additional gastrointestinal complaints Musculoskeletal: Musculoskeletal: Reports no additional musculoskeletal complaints Integumentary/Breasts: Skin/Breast: Reports system reviewed and no additional complaints, except as docu Neurologic: Reports system reviewed and no additional complaints, except as documented Endocrine: Endocrine: Reports no additional endocrine complaints Hematologic/Lymphatic: Hematologic/Lymphatic: Reports no additional hematologic/lymphatic complaints Allergic/Immunologic: Allergic/Immunologic: Reports no additional allergic/immunologic complaints PMFSH Past Medical History Medical History (Updated 06/16/21 @ 11:48 by Pierre Stevens MD) Abnormal results of kidney function studies Afib chronic. Angioedema Associated with ASA and NSAIDs Asthma Benign essential HTN CVA (cerebral vascular accident) September 2018 with residual vision loss Hypogonadism Type 2 diabetes mellitus without complication, without long-term current use of insulin
[2021-06-17] MEDS: RIVAROXABAN 20 MG TABLET PO (17:49)
[2021-06-17 17:52] LABS: Glucose Point of Care 162 mg/dl (65-105)
[2021-06-17] MEDS: cefTRIAXone 2 GM in SODIUM CHLORIDE 0.9% IV 100 ML 200 ML IVPB (21:44)
[2021-06-17] MEDS: AZITHROMYCIN 250 MG TABLET PO (21:45)
[2021-06-17 22:11] LABS: Glucose Point of Care 126 mg/dl (65-105)
[2021-06-18] VITALS (17 sets, daily range): BP systolic 117–147; BP diastolic 60–91; PULSE 82–124; RESP 14–29; TEMP 35.8–39; O2SAT 93–95
[2021-06-18] MEDS: IPRATROPIUM BR 0.02% INH SOLN 0.5 MG/2.5 ML VIAL INHALATION ×3 (01:29→21:05)
[2021-06-18 04:57] LABS: Basophils Absolute Auto 0.1 K/mm3 (0.0-0.1); Basophils Percent Auto 0.7 % (0.2-1.2); Eosinophils Absolute Auto 0.1 K/mm3 (0-0.3); Eosinophils Percent Auto 0.7 % (0-4.4); Hematocrit 45.7 % (42.0-52.0); Hemoglobin 15.5 g/dL (14.0-18.0); Immature Granulocyte Absolute 0.04 K/mm3 (0.00-0.031); Immature Granulocyte Percent A 0.5 % (0-0.5); Lymphocytes Absolute Auto 1.34 K/mm3 (0.9-3.2); Lymphocytes Percent Auto 16.3 % (18.3-44.2); Mean Corpuscular HGB Conc 33.9 g/dl (32-36); Mean Corpuscular Hemoglobin 31.1 pg (26-34); Mean Corpuscular Volume 91.8 fl (80-100); Monocytes Absolute Auto 1.4 K/mm3 (0.1-0.6); Monocytes Percent Auto 17.4 % (2.6-8.5); Neutrophils Absolute Auto 5.3 K/mm3 (1.3-6.7); Neutrophils Percent Auto 64.4 % (45.5-73.1); Platelet Count Result 205 k/mm3 (150-375); Red Blood Count 4.98 M/mm3 (4.6-6.20); Red Cell Distribution Width 14.5 % (11.5-14.5); White Blood Count 8.2 K/mm3 (4.5-10.0)
[2021-06-18 05:21] LABS: Alanine Aminotransferase 75 U/L (4-50); Albumin Level 3.4 g/dL (3.5-5.1); Alkaline Phosphatase 59 U/L (38-126); Anion Gap 8 mmol/L (8-16); Aspartate Amino Transferase 83 U/L (17-59); Bilirubin,Total 0.6 mg/dL (0.2-1.3); Blood Urea Nitrogen 26 mg/dL (9-20); Carbon Dioxide 27 mmol/L (22-30); Chloride 98 mmol/L (98-107); Estimated CRCL calculation 76 ml/min; Estimated Glomerular Filt Rate 55; Glucose 107 mg/dL (65-110); Potassium 3.9 mmol/L (3.4-5.0); Sodium 133 mmol/L (137-145)
[2021-06-18] MEDS: MONTELUKAST SODIUM 10 MG TABLET PO (09:38)
[2021-06-18] MEDS: METOPROLOL SUCCINATE EXT REL 50 MG TABCR PO (09:38)
[2021-06-18] MEDS: PRAVASTATIN SODIUM 20 MG TABLET PO (09:38)
[2021-06-18] MEDS: guaiFENesin 12 HR 600 MG TABCR PO ×2 (09:39→20:56)
[2021-06-18] MEDS: PANTOPRAZOLE SODIUM IV 40 MG VIAL IV PUSH ×2 (09:40→20:56)
[2021-06-18 09:49] LABS: Glucose Point of Care 165 mg/dl (65-105)
[2021-06-18] MEDS: ACETAMINOPHEN 325 MG TABLET 650 MG PO ×2 (09:56→16:00)
--- NOTE | 2021-06-18 10:55 | PC.NURSE ---
Transfer received from ICU room 4. Patient oriented to the room.
--- NOTE | 2021-06-18 10:59 | PC.NURSE ---
This patient, Deavnte Mitchell, was transferred to room 261 via wheelchair on 06/18/21 at 1100. Personal belongings sent with patient. Report given to Gloria. Appropriate documentation sent with patient.
[2021-06-18 11:38] LABS: Glucose Point of Care 154 mg/dl (65-105)
--- NOTE | 2021-06-18 11:59 | PM.PNCARD ---
Progress Note: A&P Additional Plan -atrial fibrillation with RVR -pneumonia. -diabetes -sleep apnea -morbid obesity This is 71-year-old patient with history of chronic atrial fibrillation presents with fevers. He is being treated for bilateral pneumonia. AFib was with rapid ventricular response. Dr. Pinto has increased his Toprol-XL from 25 mg daily to 50 mg daily. Heart rates between 100-110 beats per minute. He remains febrile. This is normal physiology corresponds to fever. At this time we will continue observation. Continue Xarelto. I expect once the fevers improve his heart rate will improve as well. Subjective Date/time seen: Date of service 06/18/21 11:59 Interval history: 71yo male with asthma, chronic AFib on anticoag, HTN and KAN here for fevers. Patient slept poorly related to noise. Having fevers again. Feels worse today. Cough is nagging. 06/18/2021. Resting comfortably in bed. Heart rate between 100-110 beats per minute. Denies shortness of breath or chest pain today. Review of Systems Constitutional: Constitutional: Reports no additional constitutional complaints Eyes: Eyes: Reports no additional eye complaints ENT: Reports system reviewed and no additional complaints, except as documented Cardiovascular: Cardiovascular: Reports no additional cardiovascular complaints Respiratory: Respiratory: Reports no additional respiratory complaints Gastrointestinal: Gastrointestinal: Reports no additional gastrointestinal complaints Musculoskeletal: Musculoskeletal: Reports no additional musculoskeletal complaints Integumentary/Breasts: Skin/Breast: Reports system reviewed and no additional complaints, except as docu Neurologic: Reports system reviewed and no additional complaints, except as documented Endocrine: Endocrine: Reports no additional endocrine complaints Hematologic/Lymphatic: Hematologic/Lymphatic: Reports no additional hematologic/lymphatic complaints Allergic/Immunologic: Allergic/Immunologic: Reports no additional allergic/immunologic complaints Exam Const: General: comfortable and no acute distress Other: Morbidly obese gentleman comfortable cooperative resting comfortably with his CPAP mask on HENMT: Mouth: Yes moist mucous membranes Eyes: Sclera: sclerae normal Pupils: Equal, round and reactive pupils present Neck: Neck: supple and no JVD Resp: Effort & Inspection: normal respiratory effort Auscultation: clear to auscultation bilaterally Cardio: Rhythm: abnormal rhythm irregularly irregular Other: PMI is not palpable S1-S2 irregular no audible murmur GI: Auscultation: normal bowel sounds Skin: General skin exam: normal color Neuro: Cranial nerves: Yes Equal, round and reactive pupils present Cognition (Neuro): normal cognition Extrem: Other: Adequate pulses mild chronic edema Objective Data Vital Signs Vital Signs: Vital Signs - 24 hr 06/17/21 12:00 06/17/21 12:48 06/17/21 14:00 Temperature 39.4 C H Pulse Rate 129 H 115 H Respiratory Rate Blood Pressure Pulse Oximetry 06/17/21 14:09 06/17/21 14:17 06/17/21 14:32 Temperature 38.8 C H Pulse Rate 119 H 120 H Respiratory Rate 18 23 H Blood Pressure Pulse Oximetry 06/17/21 16:00 06/17/21 18:00 06/17/21 20:00 Temperature 38.5 C H Pulse Rate 118 H 106 H 115 H Respiratory Rate 22 H 16 Blood Pressure 132/70 Pulse Oximetry 95 95 06/17/21 20:29 06/17/21 20:34 06/17/21 22:00 Temperature Pulse Rate 112 H 110 H 104 H Respiratory Rate 20 17 Blood Pressure Pulse Oximetry 06/17/21 22:04 06/17/21 23:00 06/17/21 23:36 Temperature 37.4 C 38.0 C H Pulse Rate 97 Respiratory Rate 14 Blood Pressure Pulse Oximetry 95 06/18/21 00:00 06/18/21 01:32 06/18/21 01:41 Temperature 38.0 C H Pulse Rate 108 H 96 104 H Respiratory Rate 29 H 14 16 Blood Pressure 125/75 Pulse Oximetry 93 06/18/21 02:00 06/18/21 04:00 06/18/21 06:00
--- NOTE | 2021-06-18 13:30 | PM.IMPN ---
Progress Note: A&P Assessment and Plan (1) Hematuria: Code(s): R31.9 - Hematuria, unspecified Status: Acute Assessment and Plan: Patient and family feel the patient was having bright red bloody urine most of the day yesterday. Spoke with the patient registration manager and he was unaware of this. Spoke with nursing and no concerns that they were aware of. Rn betys state urine simone color up until 06/17/21 at 2000 when it became Simone/Red and cloudy. This morning at 0800, urine noted to be Simone/pink and cloudy. On admission, patient denies and dysuria or hematuria. UA noted on admission with 11-20 RBC, 2+ protein and 2+ blood but no WBC/LE/Nitrates. This did not prompt a urine culture. Will repeat UA to see if hematuria is more pronounced. Check CT to exclude kidney stone. He is on Xarelto chronically so may have mild chronic hematuria. CT scan showing left sided PNA but no kidney stones. UA pendnig. Repeat Influenza negative. Check MRSA nasal swab. (2) Sepsis: Code(s): A41.9 - Sepsis, unspecified organism Status: Acute Assessment and Plan: Sepsis present on admission with tachycardia, fever, tachypnea, leukocytosis and elevated CRP. [place] source of sepsis is pneumonia. Now with positive BCx growing Staph Epi (1of2) but felt to be a contaminant. Sputum growing normal darnell. Currently on Rocephin, azithromycin and Vancomycin. Legionella and pneumococcal antigen pending. Fever curve appears to be improving. Monitor fever curve. If persistent fevers, consider Primaxin to cover Pseudomonas and/or ESBL. Check CT Ch/A/P to verify PNA and exclude urinary source of infection and stone given the hematuria. Repeat influenza. Consider repeating COVID but will wait for imaging results. (3) Pneumonia: Qualifiers: Laterality: bilateral Lung location: unspecified part of lung Pneumonia type: due to unspecified organism Qualified Code(s): J18.9 - Pneumonia, unspecified organism Code(s): J18.9 - Pneumonia, unspecified organism Status: Acute Assessment and Plan: Patient was with GARCIA but denies cough on admission but cough developed after admission. Chest x-ray reviewed personally. Most likely bacterial pneumonia. As above. (4) Atrial fibrillation with RVR: Code(s): I48.91 - Unspecified atrial fibrillation Status: Acute Assessment and Plan: Patient has chronic atrial fibrillation. He is intermittently tachycardia related to the clinical situation (fevers). Continue to control his fever. Metoprolol was advanced. Changed to Xopenex. Continue Xarelto. HR better controlled. Continue to monitor on telemetry. Watch for bradycardia once he is no longer febrile. (5) Hyponatremia: Code(s): E87.1 - Hypo-osmolality and hyponatremia Status: Acute Assessment and Plan: Na 130. Could be related to HCTZ so this was held. Uine Na 14 with FENa 0.07%. He did receive fluids in the ED. Repeat Na 133 today and stable. Follow. (6) Obstructive sleep apnea: Code(s): G47.33 - Obstructive sleep apnea (adult) (pediatric) Status: Chronic Assessment and Plan: Patient with obstructive sleep apnea and is compliant with his CPAP at home. Continue the same here. (7) Type 2 diabetes mellitus without complication, without long-term current use of insulin: Code(s): E11.9 - Type 2 diabetes mellitus without complications Status: Acute Assessment and Plan: Patient has diet-controlled DM. Last A1c was 6.4 in March. The patient's blood glucose was reviewed on 06/18 Glucose remains well controlled. Continue AccuCheks covering with sliding scale. Hypoglycemia protocol available as needed. Continue to monitor (8) Asthma: Code(s): J45.909 - Unspecified asthma, uncomplicated Status: Acute Assessment and Plan: No wheezing. Dexamethasone 10mg x 1 was given in the ED. Will hold his fluticasone and budesonide given that he has pn
[2021-06-18 15:24] LABS: Legionella pneumophila Ag Ur Not Detected (Not Detected)
[2021-06-18 16:27] LABS: Influenza Control Positive
[2021-06-18 16:43] LABS: Glucose Point of Care 100 mg/dl (65-105)
[2021-06-18] MEDS: RIVAROXABAN 20 MG TABLET PO (17:16)
[2021-06-18 18:29] LABS: Pneumococcal Antigen Urine Not Detected (Not Detected)
[2021-06-18 19:50] LABS: Vancomycin Trough 15.2 ug/mL (10.0-20.0)
[2021-06-18] MEDS: AZITHROMYCIN 250 MG TABLET PO (20:56)
[2021-06-18] MEDS: cefTRIAXone 2 GM in SODIUM CHLORIDE 0.9% IV 100 ML 200 ML IVPB (20:59)
[2021-06-18 22:29] LABS: Glucose Point of Care 144 mg/dl (65-105)
[2021-06-19] VITALS (18 sets, daily range): BP systolic 123–135; BP diastolic 76–90; PULSE 80–130; RESP 18–24; TEMP 36.1–37.1; O2SAT 95–96
[2021-06-19 00:26] LABS: Add Urine Microscopic? YES; Appearance Urine Clear (Clear); Bacteria Urine Trace /hpf; Bilirubin Urine Negative (Negative); Blood Urine 3+ (Negative); Color Urine Yellow (Yellow); Glucose Urine UA Negative (Negative); Ketones Urine Negative (Negative); Leukocyte Esterase Ur Negative LEU/UL (Negative); Mucus Urine Rare /lpf; Nitrate Urine Negative (Negative); Protein Urine 1+ mg/dL (Negative); RBC Urine 21-50 /hpf (0-2); Specific Grav Ur 1.023 (1.001-1.035); Urobilinogen Urine Negative mg/dL (<2.0); WBC Urine 0-3 /hpf
[2021-06-19] MEDS: IPRATROPIUM BR 0.02% INH SOLN 0.5 MG/2.5 ML VIAL INHALATION ×2 (02:02→07:23)
[2021-06-19] MEDS: ACETAMINOPHEN 325 MG TABLET 650 MG PO (04:22)
[2021-06-19 05:11] LABS: Hemoglobin 15.5 g/dL (14.0-18.0); Mean Corpuscular Hemoglobin 30.2 pg (26-34); Mean Corpuscular Volume 91.6 fl (80-100); Mean Platelet Volume 10.2 fl (7.4-10.4); Platelet Count Result 217 k/mm3 (150-375); Red Blood Count 5.13 M/mm3 (4.6-6.20); Red Cell Distribution Width 14.3 % (11.5-14.5); White Blood Count 7.4 K/mm3 (4.5-10.0)
[2021-06-19 05:28] LABS: Alanine Aminotransferase 106 U/L (4-50); Albumin Level 3.1 g/dL (3.5-5.1); Alkaline Phosphatase 67 U/L (38-126); Anion Gap 7 mmol/L (8-16); Aspartate Amino Transferase 107 U/L (17-59); Bilirubin,Total 0.8 mg/dL (0.2-1.3); Blood Urea Nitrogen 21 mg/dL (9-20); Calcium 7.8 mg/dL (8.4-10.2); Carbon Dioxide 24 mmol/L (22-30); Chloride 102 mmol/L (98-107); Estimated CRCL calculation 98 ml/min; Estimated Glomerular Filt Rate > 60; Glucose 103 mg/dL (65-110); Potassium 3.9 mmol/L (3.4-5.0); Sodium 133 mmol/L (137-145)
[2021-06-19 06:57] LABS: Hepatitis B Surface Antigen Negative (Negative)
[2021-06-19 07:02] LABS: HAV RESULT Negative (Negative); Hepatitis B Core IgM Result Negative (Negative)
[2021-06-19 07:14] LABS: Hepatitis C Virus Antibody Negative (Negative)
[2021-06-19 07:44] LABS: Glucose Point of Care 102 mg/dl (65-105)
[2021-06-19] MEDS: PANTOPRAZOLE SODIUM IV 40 MG VIAL IV PUSH ×2 (08:38→20:16)
[2021-06-19] MEDS: guaiFENesin 12 HR 600 MG TABCR PO ×2 (08:38→20:16)
[2021-06-19] MEDS: PRAVASTATIN SODIUM 20 MG TABLET PO (08:38)
[2021-06-19] MEDS: MONTELUKAST SODIUM 10 MG TABLET PO (08:38)
[2021-06-19] MEDS: METOPROLOL SUCCINATE EXT REL 50 MG TABCR PO (08:38)
[2021-06-19 11:42] LABS: Glucose Point of Care 139 mg/dl (65-105)
--- NOTE | 2021-06-19 12:05 | PM.IMPN ---
Progress Note: A&P Assessment and Plan (1) Hematuria: Code(s): R31.9 - Hematuria, unspecified Status: Acute Assessment and Plan: Patient and family feel the patient was having bright red bloody urine most of the dayon 06/17. Spoke with the nurse who cared for him on that day and she stated that there was no hematuria but a small amount of red blood in the bedside commode that she thought might be from hemorrhoids. Urine was listed as Kristine/Red that evening (06/17/21 at 1999) and again in the morning of 06/[address] showing no kidney stones or other abnormalities. No urinary symptoms. UA noted on admission with 11-20 RBC, 2+ protein and 2+ blood but no WBC/LE/Nitrates. Repeat UA showing 1+protein, 3+ blood and 21-50 RBC but not consistent with UTI. He is on Xarelto chronically and he was having fevers. Would defer to further outpatient evaluation if this recurs. (2) Sepsis: Code(s): A41.9 - Sepsis, unspecified organism Status: Acute Assessment and Plan: Sepsis present on admission with tachycardia, fever, tachypnea, leukocytosis and elevated CRP. [place] source of sepsis is pneumonia. Positive BCx growing Staph Epi (1of2) but felt to be a contaminant. Sputum growing normal darnell. Pneumococcal urine antigen negative. COVID/Influenza negative. CT Chest showing left lower lobe PNA. Currently on Rocephin, azithromycin and Vancomycin. Legionella antigen pending. MRSA nasal swab pending. Fever resolving. WBC normal. Monitor fever curve. If persistent fevers, consider Primaxin to cover Pseudomonas and/or ESBL. Symptoms waning. If remains fever free tomorrow, plan discharge home. (3) Pneumonia: Qualifiers: Laterality: bilateral Lung location: unspecified part of lung Pneumonia type: due to unspecified organism Qualified Code(s): J18.9 - Pneumonia, unspecified organism Code(s): J18.9 - Pneumonia, unspecified organism Status: Acute Assessment and Plan: Patient with GARCIA but denied cough on admission but cough has since developed. Chest x-ray on admission showing bilateral perihilar and mid and lower lung zone opacities. CT Chest showing left lower lobe PNA. Most likely bacterial pneumonia. Treatment as above. (4) Atrial fibrillation with RVR: Code(s): I48.91 - Unspecified atrial fibrillation Status: Acute Assessment and Plan: Patient has chronic atrial fibrillation. He is intermittently tachycardia related to the clinical situation (fevers). Continue to control his fever. Metoprolol was advanced. Changed to Xopenex. Continue Xarelto. HR better controlled. Continue to monitor on telemetry. (5) Elevated LFTs: Code(s): R79.89 - Other specified abnormal findings of blood chemistry Status: Acute Assessment and Plan: AST/ALT mildly elevated today. Probably related to the tachycarida and sepsis. Hepatitis panel negative. CT Abdomen showing normal liver, GB. Repeat levels higher today but not unexpected. Will follow for now. (6) Hyponatremia: Code(s): E87.1 - Hypo-osmolality and hyponatremia Status: Acute Assessment and Plan: Na 130. Could be related to HCTZ so this was held. Uine Na 14 with FENa 0.07%. He did receive fluids in the ED. Repeat Na 133 today and stable. Follow. (7) Obstructive sleep apnea: Code(s): G47.33 - Obstructive sleep apnea (adult) (pediatric) Status: Chronic Assessment and Plan: Patient with obstructive sleep apnea and is compliant with his CPAP at home. Continue the same here. (8) Type 2 diabetes mellitus without complication, without long-term current use of insulin: Code(s): E11.9 - Type 2 diabetes mellitus without complications Status: Acute Assessment and Plan: Patient has diet-controlled DM. Last A1c was 6.4 in March. The patient's blood glucose was reviewed on 06/19 Glucose remains well controlled. Continue AccuCheks covering
[2021-06-19] MEDS: LEVALBUTEROL NEB 1.25 MG/3 ML 0.63 MG INHALATION ×2 (13:06→20:07)
--- NOTE | 2021-06-19 14:29 | PM.PNCARD ---
Progress Note: A&P Assessment and Plan (1) Atrial fibrillation with RVR: Code(s): I48.91 - Unspecified atrial fibrillation Status: Acute Assessment and Plan: This is 71-year-old patient with history of chronic atrial fibrillation presents with fevers. Afib with rapid ventricular response at presentation. His Toprol-XL has been increased from 25mg daily to 50mg daily. Rate is currently in the 80's but did have some tachycardia in the 150's this morning before medication was administered. Asymptomatic. Continue a/c with Xarelto. (2) NSVT (nonsustained ventricular tachycardia): Code(s): I47.2 - Ventricular tachycardia Status: Acute Assessment and Plan: Had 12 beat run NSVT on telemetry this afternoon. Asymptomatic. No other centricular ectopy noted. Check electrolytes now. Continue to monitor on telemetry. Subjective Date/time seen: 06/19/21 14:29 Interval history: 71yo male with asthma, chronic AFib on anticoag, HTN and KAN here for fevers. Patient slept poorly related to noise. Having fevers again. Feels worse today. Cough is nagging. 06/18/2021. Resting comfortably in bed. Heart rate between 100-110 beats per minute. Denies shortness of breath or chest pain today. 06/19/2021: Review of Systems Constitutional: Constitutional: Reports no additional constitutional complaints Eyes: Eyes: Reports no additional eye complaints ENT: Reports system reviewed and no additional complaints, except as documented Cardiovascular: Cardiovascular: Reports no additional cardiovascular complaints Respiratory: Respiratory: Reports no additional respiratory complaints Gastrointestinal: Gastrointestinal: Reports no additional gastrointestinal complaints Musculoskeletal: Musculoskeletal: Reports no additional musculoskeletal complaints Integumentary/Breasts: Skin/Breast: Reports system reviewed and no additional complaints, except as docu Neurologic: Reports system reviewed and no additional complaints, except as documented Endocrine: Endocrine: Reports no additional endocrine complaints Hematologic/Lymphatic: Hematologic/Lymphatic: Reports no additional hematologic/lymphatic complaints Allergic/Immunologic: Allergic/Immunologic: Reports no additional allergic/immunologic complaints Exam Const: General: comfortable and no acute distress Other: Morbidly obese gentleman lying comfortably in bed HENMT: Mouth: Yes moist mucous membranes Eyes: Sclera: sclerae normal Pupils: Equal, round and reactive pupils present Neck: Neck: supple and no JVD Resp: Effort & Inspection: normal respiratory effort Auscultation: clear to auscultation bilaterally Cardio: Rhythm: abnormal rhythm irregularly irregular Other: PMI is not palpable S1-S2 irregular no audible murmur GI: Auscultation: normal bowel sounds Skin: General skin exam: normal color Neuro: Cranial nerves: Yes Equal, round and reactive pupils present Cognition (Neuro): normal cognition Extrem: Other: Adequate pulses mild chronic edema Objective Data Vital Signs Vital Signs: Vital Signs - 24 hr 06/18/21 16:00 06/18/21 16:03 06/18/21 19:39 Temperature 36.9 C 36.6 C Pulse Rate 82 99 100 Respiratory Rate 18 17 Blood Pressure 117/60 117/68 Pulse Oximetry 94 94 06/18/21 20:00 06/18/21 21:05 06/18/21 21:16 Temperature Pulse Rate 103 H 106 H 110 H Respiratory Rate 18 22 H Blood Pressure Pulse Oximetry 06/19/21 00:00 06/19/21 02:03 06/19/21 02:04 Temperature Pulse Rate 113 H 100 100 Respiratory Rate 20 Blood Pressure Pulse Oximetry 96 06/19/21 02:10 06/19/21 04:00 06/19/21 04:15 Temperature 37.1 C Pulse Rate 102 H 130 H 97 Respiratory Rate 19 20 Blood Pressure 135/86 Pulse Oximetry 95 06/19/21 07:24 06/19/21 07:25 06/19/21 08:00 Temperature Pulse Rate 102 H 102 H 90 Respiratory Rate 20 20 Blood Pressure Pulse Oximetry 95 06/19/21 08:38
[2021-06-19 15:54] LABS: Anion Gap 8 mmol/L (8-16); Blood Urea Nitrogen 22 mg/dL (9-20); Calcium 8.2 mg/dL (8.4-10.2); Carbon Dioxide 23 mmol/L (22-30); Chloride 103 mmol/L (98-107); Estimated CRCL calculation 98 ml/min; Estimated Glomerular Filt Rate > 60; Glucose 138 mg/dL (65-110); Magnesium 2.4 mg/dL (1.6-2.3); Potassium 3.7 mmol/L (3.4-5.0); Sodium 134 mmol/L (137-145)
[2021-06-19 16:25] LABS: Glucose Point of Care 126 mg/dl (65-105)
[2021-06-19] MEDS: RIVAROXABAN 20 MG TABLET PO (17:17)
[2021-06-19] MEDS: cefTRIAXone 2 GM in SODIUM CHLORIDE 0.9% IV 100 ML 200 ML IVPB (20:16)
[2021-06-19] MEDS: AZITHROMYCIN 250 MG TABLET PO (20:16)
[2021-06-19 20:35] LABS: Glucose Point of Care 171 mg/dl (65-105)
[2021-06-20] VITALS (18 sets, daily range): BP systolic 114–142; BP diastolic 64–69; PULSE 65–109; RESP 17–22; TEMP 35.9–36.8; O2SAT 96–98
[2021-06-20] MEDS: ACETAMINOPHEN 325 MG TABLET 650 MG PO ×2 (02:19→19:51)
[2021-06-20 06:02] LABS: Alanine Aminotransferase 110 U/L (4-50); Albumin Level 3.3 g/dL (3.5-5.1); Alkaline Phosphatase 80 U/L (38-126); Anion Gap 9 mmol/L (8-16); Aspartate Amino Transferase 80 U/L (17-59); Bilirubin,Total 0.5 mg/dL (0.2-1.3); Blood Urea Nitrogen 19 mg/dL (9-20); Carbon Dioxide 25 mmol/L (22-30); Chloride 104 mmol/L (98-107); Estimated CRCL calculation 98 ml/min; Estimated Glomerular Filt Rate > 60; Glucose 111 mg/dL (65-110); Potassium 3.7 mmol/L (3.4-5.0); Sodium 138 mmol/L (137-145)
[2021-06-20 07:38] LABS: Glucose Point of Care 101 mg/dl (65-105)
[2021-06-20] MEDS: METOPROLOL SUCCINATE EXT REL 50 MG TABCR PO (08:49)
[2021-06-20] MEDS: PANTOPRAZOLE SODIUM IV 40 MG VIAL IV PUSH ×2 (08:49→20:11)
[2021-06-20] MEDS: guaiFENesin 12 HR 600 MG TABCR PO ×2 (08:49→20:10)
[2021-06-20] MEDS: MONTELUKAST SODIUM 10 MG TABLET PO (08:49)
[2021-06-20] MEDS: PRAVASTATIN SODIUM 20 MG TABLET PO (08:50)
[2021-06-20] MEDS: LEVALBUTEROL NEB 1.25 MG/3 ML 0.63 MG INHALATION ×3 (09:52→20:21)
[2021-06-20 11:42] LABS: Glucose Point of Care 160 mg/dl (65-105)
--- NOTE | 2021-06-20 12:51 | PM.IMPN ---
Progress Note: A&P Assessment and Plan (1) Hematuria: Code(s): R31.9 - Hematuria, unspecified Status: Acute Assessment and Plan: Hematuria stopped. He is on Xarelto chronically so may have mild chronic hematuria. Pt did have CT scan which showed left sided PNA but no kidney stones. (2) Sepsis: Code(s): A41.9 - Sepsis, unspecified organism Status: Acute Assessment and Plan: Sepsis present on admission with tachycardia, fever, tachypnea, leukocytosis and elevated CRP. [place] source of sepsis is pneumonia. Now with positive BCx growing Staph Epi (1of2) but felt to be a contaminant. Sputum growing normal darnell. Currently on Rocephin, azithromycin and Vancomycin. Legionella and pneumococcal antigen pending. last fever was 06/19 continue to monitor today consider DC on Tuesday/ Tuesday hopefully when vitals are better. (3) Pneumonia: Qualifiers: Laterality: bilateral Lung location: unspecified part of lung Pneumonia type: due to unspecified organism Qualified Code(s): J18.9 - Pneumonia, unspecified organism Code(s): J18.9 - Pneumonia, unspecified organism Status: Acute Assessment and Plan: Patient was with GARCIA but denies cough on admission but cough developed after admission. last cxr was 06/[address] chest abdo pelvis 06/18 (4) Atrial fibrillation with RVR: Code(s): I48.91 - Unspecified atrial fibrillation Status: Acute Assessment and Plan: Patient has chronic atrial fibrillation. He is intermittently tachycardia on ambulation. Pt have asked him to walk with the nurse today and see how his HR and RR does. (5) Hyponatremia: Code(s): E87.1 - Hypo-osmolality and hyponatremia Status: Resolved Assessment and Plan: Na 138 today (6) Obstructive sleep apnea: Code(s): G47.33 - Obstructive sleep apnea (adult) (pediatric) Status: Chronic Assessment and Plan: Patient with obstructive sleep apnea and is compliant with his CPAP at home. Continue the same here. (7) Type 2 diabetes mellitus without complication, without long-term current use of insulin: Code(s): E11.9 - Type 2 diabetes mellitus without complications Status: Acute Assessment and Plan: Patient has diet-controlled DM. Last A1c was 6.4 in March. Glucose remains well controlled. Continue AccuCheks covering with sliding scale. Hypoglycemia protocol available as needed. Continue to monitor (8) Asthma: Code(s): J45.909 - Unspecified asthma, uncomplicated Status: Acute Assessment and Plan: No wheezing. (9) Morbid (severe) obesity due to excess calories: Code(s): E66.01 - Morbid (severe) obesity due to excess calories Status: Acute Assessment and Plan: BMI 44. This is contributing to his other medical problems. Healthy lifestyle was encouraged. (10) DVT prophylaxis: Code(s): Z29.9 - Encounter for prophylactic measures, unspecified Status: Acute Assessment and Plan: Xarelto (11) Elevated LFTs: Code(s): R79.89 - Other specified abnormal findings of blood chemistry Status: Acute Assessment and Plan: AST/ALT mildly elevated today. Probably related to the tachycardia and sepsis. Hepatitis panel is negative.pt denies heavy drinking Subjective Date/time seen: 06/20/21 12:51 Interval history: 71yo male with asthma, chronic AFib on anticoag, HTN and KAN here for fevers and found to have LLL PNA. Pt still having some fevers on 06/19, pt having cough, feels heart rate going up when he walks. Review of Systems Review of Systems: All systems reviewed & are unremarkable except as noted in HPI and below Exam Narrative: Gen - Restful overweight anxious with cough Chest BL rales CV - irregularly irregular. Abd - soft, obese, NT Ext - no pedal edema Psych - normal mood but odd affect. Skin -
[2021-06-20 16:33] LABS: Glucose Point of Care 104 mg/dl (65-105)
[2021-06-20] MEDS: RIVAROXABAN 20 MG TABLET PO (17:41)
[2021-06-20] MEDS: cefTRIAXone 2 GM in SODIUM CHLORIDE 0.9% IV 100 ML 200 ML IVPB (20:09)
[2021-06-20 20:24] LABS: Glucose Point of Care 117 mg/dl (65-105)
[2021-06-21] VITALS (7 sets, daily range): BP systolic 129; BP diastolic 72; PULSE 71–105; RESP 16–19; TEMP 36.9; O2SAT 95
[2021-06-21 07:43] LABS: Anion Gap 4 mmol/L (8-16); Blood Urea Nitrogen 17 mg/dL (9-20); Calcium 8.2 mg/dL (8.4-10.2); Carbon Dioxide 29 mmol/L (22-30); Chloride 105 mmol/L (98-107); Estimated CRCL calculation 98 ml/min; Estimated Glomerular Filt Rate > 60; Glucose 119 mg/dL (65-110); Potassium 4.1 mmol/L (3.4-5.0); Sodium 138 mmol/L (137-145)
[2021-06-21 07:48] LABS: Glucose Point of Care 115 mg/dl (65-105)
[2021-06-21 07:52] LABS: Hemoglobin 15.2 g/dL (14.0-18.0); Mean Corpuscular Hemoglobin 30.5 pg (26-34); Mean Corpuscular Volume 92.4 fl (80-100); Mean Platelet Volume 10.3 fl (7.4-10.4); Platelet Count Result 278 k/mm3 (150-375); Red Blood Count 4.98 M/mm3 (4.6-6.20); Red Cell Distribution Width 14.5 % (11.5-14.5)
[2021-06-21] MEDS: LEVALBUTEROL NEB 1.25 MG/3 ML 0.63 MG INHALATION (08:43)
[2021-06-21] MEDS: PANTOPRAZOLE SODIUM IV 40 MG VIAL IV PUSH (08:51)
[2021-06-21] MEDS: METOPROLOL SUCCINATE EXT REL 50 MG TABCR PO (08:51)
[2021-06-21] MEDS: PRAVASTATIN SODIUM 20 MG TABLET PO (08:52)
[2021-06-21] MEDS: MONTELUKAST SODIUM 10 MG TABLET PO (08:52)
[2021-06-21] MEDS: guaiFENesin 12 HR 600 MG TABCR PO (08:52)
--- NOTE | 2021-06-21 10:56 | PM.DS ---
DS: Admitting Diagnosis Discharge Date 06/21/21 Admitting Diagnosis pna DS: Discharge Diagnosis Discharge Diagnosis (1) Hematuria: Code(s): R31.9 - Hematuria, unspecified Status: Acute Assessment and Plan: Hematuria stopped. He is on Xarelto chronically so may have mild chronic hematuria. (2) Sepsis: Code(s): A41.9 - Sepsis, unspecified organism Status: Acute Assessment and Plan: now resolved (3) Pneumonia: Qualifiers: Laterality: bilateral Lung location: unspecified part of lung Pneumonia type: due to unspecified organism Qualified Code(s): J18.9 - Pneumonia, unspecified organism Code(s): J18.9 - Pneumonia, unspecified organism Status: Acute Assessment and Plan: abx on dc (4) Atrial fibrillation with RVR: Code(s): I48.91 - Unspecified atrial fibrillation Status: Acute Assessment and Plan: fu cardiology increased bb on this dc (5) Hyponatremia: Code(s): E87.1 - Hypo-osmolality and hyponatremia Status: Resolved Assessment and Plan: Na 138 today (6) Obstructive sleep apnea: Code(s): G47.33 - Obstructive sleep apnea (adult) (pediatric) Status: Chronic Assessment and Plan: Patient with obstructive sleep apnea and is compliant with his CPAP at home. Continue the same here. (7) Type 2 diabetes mellitus without complication, without long-term current use of insulin: Code(s): E11.9 - Type 2 diabetes mellitus without complications Status: Acute Assessment and Plan: fu pcp (8) Asthma: Code(s): J45.909 - Unspecified asthma, uncomplicated Status: Acute Assessment and Plan: No wheezing. (9) Morbid (severe) obesity due to excess calories: Code(s): E66.01 - Morbid (severe) obesity due to excess calories Status: Acute Assessment and Plan: BMI 44. This is contributing to his other medical problems. Healthy lifestyle was encouraged. (10) DVT prophylaxis: Code(s): Z29.9 - Encounter for prophylactic measures, unspecified Status: Acute Assessment and Plan: Xarelto (11) Elevated LFTs: Code(s): R79.89 - Other specified abnormal findings of blood chemistry Status: Acute Assessment and Plan: monitor outpatient DS: Summary Hospital Course Hospital Course: admitted w pna and sent home on abx Time Spent with Patient Time attestation: Total time spent providing and/or coordinating discharge services: Specific discharge activities: admitted w pna and sent home on abx Exam Narrative: Gen - Restful overweight anxious with cough Chest BL rales CV - irregularly irregular. Abd - soft, obese, NT Ext - no pedal edema Psych - normal mood but odd affect. Skin - warm and dry DS: Data Data Completed and Pending Labs on day of discharge: Labs from last 24 hours 06/21/21 06/21/21 06/21/21 07:40 07:11 07:11 WBC 8.0 RBC 4.98 Hgb 15.2 Hct 46.0 MCV 92.4 MCH 30.5 MCHC 33.0 RDW 14.5 Plt Count 278 MPV 10.3 Sodium 138 Potassium 4.1 Chloride 105 Carbon Dioxide 29 Anion Gap 4 L BUN 17 Creatinine 1.00 Estim Creat Clear Calc 98 Estimated GFR > 60 Glucose 119 H POC Capillary Glucose 115 H Calcium 8.2 L 06/20/21 06/20/21 06/20/21 19:51 16:27 11:39 WBC RBC Hgb Hct MCV MCH MCHC RDW Plt Count MPV Sodium Potassium Chloride Carbon Dioxide Anion Gap BUN Creatinine Estim Creat Clear Calc Estimated GFR Glucose POC Capillary Glucose 117 H 104 160 H Calcium Preliminary micro results at discharge 06/15/21 22:16 Blood Culture - Preliminary Blood Staphylococcus epidermis Discharge Plan Discharge Attending physician on discharge: Rickey Lizama Consulting providers: iMllie
== END 2021-06-21 13:04 | disposition home or self-care (01) | DRG 194 ==
LOC: ANHED 23:22 → ANHICU 06-16 04:32 → ANH2MED 06-21 10:46 → ANHICU 06-23 09:01
PROVIDERS: Family Medicine; Internal Medicine; Nurse Practitioner; Admitting Provider Internal Medicine; Emergency Provider Emergency Medicine; PCP Internal Medicine; Visit Provider Chiropractor
DX: J18.9 Pneumonia, unspecified organism (principal); E66.2 Morbid (severe) obesity with alveolar hypoventilation; E87.1 Hypo-osmolality and hyponatremia; Z68.41 Body mass index [BMI] 40.0-44.9, adult; I47.2 Ventricular tachycardia; I48.20 Chronic atrial fibrillation, unspecified; Z20.822 Contact with and (suspected) exposure to COVID-19; I48.91 Unspecified atrial fibrillation; J45.909 Unspecified asthma, uncomplicated; E11.9 Type 2 diabetes mellitus without complications; I10 Essential (primary) hypertension; R31.9 Hematuria, unspecified; R79.89 Other specified abnormal findings of blood chemistry; Z79.01 Long term (current) use of anticoagulants; Z79.899 Other long term (current) drug therapy; Z86.73 Personal history of transient ischemic attack (TIA), and cerebral infarction without residual deficits; Z87.891 Personal history of nicotine dependence
CPT/HCPCS: 36415; 71045; 71250; 74176; 80048; 80053; 80074; 80202; 81001; 82550; 82570; 82948; 83605; 83735; 84300; 85025; 85027; 85610; 85730; 86140; 87040; 87070; 87077; 87081; 87186; 87205; 87449; 87804; 87899; 93005; 93306; 94640; 96361; 96365; 96367; 96375; 96376; 97110; 97116; 97161; 97165; 99285; A9270; C9113; C9803; G0378; J0456; J0696; J1100; J3370; J7030; Q9957; U0003; U0005

== ENCOUNTER → 2021-07-09 10:16 | Outpatient (CLI) | payer MEDICARE, SELFPAY ==
--- NOTE | ~2021-07-09 | XR_ITS ---
EXAMINATION: XR chest 2V 07/09/2021 10:32 INDICATION: Pneumonia PROCEDURE: 2 view chest COMPARISON: Comparison to multiple prior studies sequentially, with oldest reviewed study dated 10/02. FINDINGS: The lungs are clear. The cardiomediastinal silhouette is within normal limits. There are no pleural effusions. There is no pneumothorax suspected. IMPRESSION: 1: NO ACUTE CARDIOPULMONARY DISEASE. Reviewed, dictated and finalized at location B.
== END ==
PROVIDERS: PCP Internal Medicine; Visit Provider Internal Medicine
DX: J18.9 Pneumonia, unspecified organism (principal)
CPT/HCPCS: 71046

== ENCOUNTER → 2021-08-07 08:01 | Outpatient (CLI) | payer MEDICARE, SELFPAY ==
[2021-08-07 11:18] LABS: Influenza A QL RT-PCR Negative (Negative); Influenza B QL RT-PCR Negative (Negative); SARS-CoV-2 RNA PCR Negative
== END ==
PROVIDERS: PCP Internal Medicine; Visit Provider Internal Medicine
DX: R50.9 Fever, unspecified (principal); Z20.822 Contact with and (suspected) exposure to COVID-19
CPT/HCPCS: 87502; C9803; U0003; U0005

== ENCOUNTER → 2021-09-25 02:12 | Outpatient (CLI) | payer MEDICARE, SELFPAY ==
[2021-09-25 16:40] LABS: SARS-CoV-2 RNA PCR Negative
== END ==
PROVIDERS: PCP Internal Medicine; Visit Provider Internal Medicine
DX: R68.89 Other general symptoms and signs (principal); Z20.822 Contact with and (suspected) exposure to COVID-19
CPT/HCPCS: C9803; U0003; U0005

== ENCOUNTER → 2022-07-08 10:21 | Outpatient (CLI) | payer MEDICARE, SELFPAY ==
--- NOTE | ~2022-07-08 | DEXA_ITS ---
Bone Density Report Name: COOPER PALACIOS Age: 72 Sex: Male Ethnicity: White Date of : 1950 Indication: screening for osteoporosis; height loss; asthma or emphysema; Referring Provider: PEPE VARMA Study: Bone densitometry was performed. Exam Date: July 08, 2022 Accession number: [id number] Bone Density: Region BMD T-score Z-score Classification AP Spine (L1-L4) 1.491 3.6 4.6 Normal Femoral Neck (Left) 0.943 0.1 1.3 Normal Total Hip (Left) 1.219 1.2 1.9 Normal Femoral Neck (Right) 0.871 -0.4 0.8 Normal Total Hip (Right) 1.160 0.8 1.5 Normal Total Hip Mean 1.190 1.0 1.7 Normal World Health Organization criteria for BMD impression classify patients as: Normal (T-score at or above -1.0), Osteopenia (T-score between -1.0 and -2.5), or Osteoporosis (T-score at or below -2.5). 10-year Fracture Risk: FRAX not reported because: All T-scores for Spine Total, Hip Total, Femoral Neck at or above -1.0 Clinical Information Provided by Patient: Has the following medical conditions: Asthma or Emphysema Patient maximum height was 75 No regular weight bearing exercise Drinks caffeinated beverages Impression: The patient has normal bone mass. Discussion: BONE DENSITY IS ABOVE THE MINIMUM DESIRABLE LEVEL AT ALL SKELETAL SITES TESTED. This patient?s bone mineral density is above the minimum desirable level (T-score -1.0 or better) at all sites measured. The patient should follow a healthful lifestyle (good nutrition with adequate calcium and vitamin D, and appropriate weight-bearing exercise). Follow-Up: Consider repeating this study in 5 years or sooner if there is some new clinical indication. Reported by: KAREN on 07/08/2022 10:53:00 AM. Reviewed, dictated and finalized at location AJoe SHEPPARD
== END ==
PROVIDERS: PCP Family Medicine; Visit Provider Urology
DX: M81.0 Age-related osteoporosis without current pathological fracture (principal)
CPT/HCPCS: 77080

== ENCOUNTER → 2022-07-15 10:30 | Outpatient (CLI) | payer MEDICARE, SELFPAY ==
--- NOTE | ~2022-07-15 | XR_ITS ---
AP and lateral views of the right tibia/fibula Clinical History: Pain Findings: No acute fracture or dislocation is seen. Osseous alignment is anatomic. There is evidence of old [place]-Schlatter's disease. Joint spaces are preserved without significant erosive or degenera tive change. There is mild subcutaneous soft tissue edema and scattered small soft tissue calcificati ons. Impression: Mild soft tissue edema and scattered soft tissue calcific patient. Correlate for venous stasis. Old [place]-Schlatter's disease. Reviewed, dictated and finalized at location M. Impression: Mild soft tissue edema and scattered soft tissue calcific patient. Correlate fo r venous stasis. Old [place]-Schlatter's disease.
--- NOTE | ~2022-07-15 | XR_ITS ---
Right ankle Technique: AP, oblique, and lateral views were obtained. Clinical History: Pain Findings: No acute fracture or dislocation is seen. Osseous alignment is anatomic. There is mild dege nerative change of the tibiotalar joint. Plantar calcaneal spur present. There is subcutaneous soft t issue edema with scattered small soft tissue calcifications. Impression: Mild degenerative change of the tibiotalar joint. Soft tissue findings which raise the possibility of venous stasis. Correlate clinically. Reviewed, dictated and finalized at location M. Impression: Mild degenerative change of the tibiotalar joint. Soft tissue findings which raise the possibility of venous stasis. Correlate cl inically.
== END ==
PROVIDERS: PCP Family Medicine; Visit Provider Family Medicine
DX: M25.571 Pain in right ankle and joints of right foot (principal); R60.9 Edema, unspecified; M92.521 Juvenile osteochondrosis of tibia tubercle, right leg
CPT/HCPCS: 73590; 73610

== ENCOUNTER → 2023-06-16 13:51 | Outpatient (CLI) | payer MEDICARE, SELFPAY ==
--- NOTE | ~2023-06-16 | XR_ITS ---
EXAMINATION: XR shoulder RT min 2V INDICATION: Right shoulder pain TECHNIQUE: Five views of the right shoulder are submitted. COMPARISON: 09/09/2020 FINDINGS: Normal alignment. No fracture. There is moderate osteoarthritis of the acromioclavicular an d glenohumeral joints. Soft tissues are unremarkable. IMPRESSION: 1. Osteoarthritis without acute osseous abnormality. Reviewed, dictated and finalized at location L. RTURE CLERK
== END ==
PROVIDERS: PCP Family Medicine; Visit Provider Family Medicine
DX: M19.011 Primary osteoarthritis, right shoulder (principal); M25.511 Pain in right shoulder
CPT/HCPCS: 73030

== ENCOUNTER → 2023-07-11 13:26 | Outpatient (REF) | payer MEDICARE, SELFPAY | LOC: ANHLAB 13:26 | PROVIDERS: PCP Family Medicine; Visit Provider Plastic Surgery | DX: C44.42 Squamous cell carcinoma of skin of scalp and neck (principal) | CPT/HCPCS: 88305 ==

== ENCOUNTER → 2023-08-10 13:23 | Outpatient (REF) | payer MEDICARE, SELFPAY | LOC: ANHLAB 13:23 | PROVIDERS: PCP Family Medicine; Visit Provider Plastic Surgery | DX: C44.42 Squamous cell carcinoma of skin of scalp and neck (principal) | CPT/HCPCS: 88305 ==

== ENCOUNTER 2023-08-13 13:49 | Emergency (ER) | payer MEDICARE, SELFPAY ==
--- NOTE | ~2023-08-13 | XR_ITS ---
EXAM: XR foot LT 2V DATE: 08/13/2023 14:26 HISTORY: infected left 3rd toe difficult pt . COMPARISON: None available. FINDINGS: Decreased mineralization. No fracture or dislocation. No lytic or blastic lesion. Moderate degenerative changes at the first MTP joint, midfoot, and tibiotalar joint. Moderate Achilles and se desmond plantar enthesopathy, with plantar fascia calcifications. Prominent fused os navicularis. No ero anisha or periosteal change. Vascular calcifications. Forefoot soft tissue swelling. Swelling of the th ird toe with possible soft tissue ulceration. IMPRESSION: No acute osseous finding in the left foot. Specifically, there is no radiographic evidenc e of osteomyelitis. Reviewed, dictated and finalized at location K. IMPRESSION: No acute osseous finding in the left foot. Specifically, there is n o radiographic evidence of osteomyelitis.
[2023-08-13 14:01] VITALS: BP 152/97; PULSE 81; RESP 18; TEMP 37.6; O2SAT 97
[2023-08-13 14:02] VITALS: BP 152/97; PULSE 81; RESP 18; TEMP 37.6; O2SAT 97
--- NOTE | 2023-08-13 14:03 | ED.EXTPRO ---
HPI - Extremity Problem General Chief complaint: Extremity Problem,Nontraumatic Stated complaint: left foot 3rd toe pain Time Seen by Provider: 08/13/23 14:05 Source: patient Mode of arrival: ambulatory Limitations: no limitations History of Present Illness HPI Narrative: 73 y/o male presented for c/o redness and swelling to the left middle toe. Endorses mild redness since 07/29, which has slowly been worsening. States over the past 72 hours the redness and swelling have worsened to include swelling up the foot and more pain. Noted drainage to the sock upon arrival to clinic. Reports mild left foot/ankle swelling is chronic, but worse now. Pt follows with a education administrator, scheduled in 2 days, last seen 2 days prior to the onset of redness. Related Data Home Medications Medication Instructions Recorded Confirmed fluticasone propionate 50 1 spray intranasal DAILY 04/10/19 08/13/23 mcg/actuation nasal spray,suspension (Allergy Relief (fluticasone)) glucosamine 375 [id number]-[id number]-tde 1 tablet PO DIRECTED 04/10/19 08/13/23 no1 500 mg-C 15 mg-jazzy 0.5 mg tablet rivaroxaban 20 mg tablet (Xarelto) 20 mg PO QPM 04/10/19 08/13/23 Allergies Allergy/AdvReac Type Severity Reaction Status Date / Time aspirin Allergy Severe Swelling Verified 08/13/23 14:02 of Lip/Tongue/Throat hydrocodone Allergy Severe vomiting Verified 08/13/23 14:02 blood ibuprofen Allergy Severe Anaphylaxis Verified 08/13/23 14:02 ketoprofen Allergy Severe angioedema Verified 08/13/23 14:02 and diarrhea Quinolones Allergy Intermediate halucinatio Verified 08/13/23 14:02 ns Sulfa (Sulfonamide Allergy Unknown Unknown Verified 08/13/23 14:02 Antibiotics) sulfamethizole Allergy Unknown Unknown Verified 08/13/23 14:02 trimethoprim Allergy Unknown Unknown Verified 08/13/23 14:02 Review of Systems Review of Systems: CONSTITUTIONAL: Denies body aches, fever, chills CARDIOVASCULAR: Denies chest pain, palpitations, or edema. RESPIRATORY: Denies cough or dyspnea. GASTROINTESTINAL: Denies abdominal pain, nausea, vomiting, or diarrhea. SKIN: Reports redness, swelling left 3rd toe MUSCULOSKELETAL: Denies back pain, joint pain, or myalgia. NEUROLOGIC: Denies headache, numbness, tingling, or weakness. PSYCH: Denies depression or anxiety. All systems reviewed & are unremarkable except as noted in HPI and below PMFSH Past Medical History Medical History Abnormal results of kidney function studies Afib chronic. Angioedema Associated with ASA and NSAIDs Asthma Benign essential HTN CVA (cerebral vascular accident) September 2018 with residual vision loss Hypogonadism Type 2 diabetes mellitus without complication, without long-term current use of insulin Family History Family History Mother Mesothelioma Father Family history of congestive heart failure Social History Social History Social History: Patient lives with his Lena. He is a full code. He smoked cigars until about 1987. Smoked 1-2 cigars per week on occasion. No drug use. Drinks 2 alcoholic drinks per week. Smoking status: Former smoker Alcohol intake: current Drinks per week: 2 Alcohol use details: occasionally, beer Substance use: never Substance use type: does not use Lack of Transportation: No Lack of Food: Never True Current Housing: I Have Housing Concerned About Future Housing: No Difficulty Paying Gas/Electric Bills: Decline to Answer Difficulty Paying for Meds: Decline to Answer Currently Unemployed: No Education: Master's Degree or Higher Difficulty w/ Childcare or Family Care: No Gender identity (if verbalized by the patient): Male Spiritual care concerns: No Comments At time of signature, I have reviewed and agree with nursing past medical, surgical, social and family history unless otherwise noted. Please see nursing chart for further information. There is no relevant family history pertinent to the presenting complaint Exam Narrative: GENERAL: Well-appearing CHEST: Speaks in full sentences. No respiratory distress. HEART: Regular rate and rhythm. Normal and equal peripheral pulses. EXTREMITIES: Left 3rd toe with moderate swelling and erythema, swelling extends to the foot 2+ pedal edema. Plantar surface distal phalanx with pinpoint open area draining purulent fluid, tender; lateral aspect of distal phalanx draining purulent fluid; fluid filled intact blister to medial aspect of the distal phalanx. Foot warm. Left foot has normal strength and sensation, normal range of motion. pulse palpable and equal bilaterally, skin warm, dry, pink. Capillary refill less than 3 seconds. SKIN: Warm, dry NEURO: Alert and oriented x3. PSYCH: Normal mood and affect Course Course Emergency Course: Patient is aware of diagnosis, understands and agrees to treatment plan. Anticipatory guidance given. Patient agrees to follow-up as directed and is aware of reasons to seek care at the emergency department. Portions of this record may have been created with voice recognition software Level of Care: Express Care Visit Vital Signs Vital signs: Vital Signs Temperature 99.6 F 08/13/23 14:01 Pulse Rate 81 08/13/23 14:01 Respiratory Rate 18 08/13/23 14:01 Blood Pressure 152/97 H 08/13/23 14:01 Pulse Oximetry 97 08/13/23 14:01 Oxygen Delivery Room Air 08/13/23 14:01 Temperature 99.6 F 08/13/23 14:02 Pulse Rate 81 08/13/23 14:02 Respiratory Rate 18 08/13/23 14:02 Blood Pressure 152/97 H 08/13/23 14:02 Pulse Oximetry 97 08/13/23 14:02 Oxygen Delivery Room Air 08/13/23 14:02 Reviewed Procedures Abscess I/D Left 3rd toe: Date of Incision: 08/13/23 Local Anesthetic: lidocaine 1% Amount of anesthesia used (mL): 1 Technique: incised with #11 blade Irrigation: Yes (10mL) Packing used?: none I&D Results: Blood Abcess I&D Additional Comments: The procedure and its alternatives were reviewed with patient. Risks were reviewed with patient including infection and damage to nearby structures. Patient provided verbal informed consent. The patient was positioned appropriately. Local anesthesia achieved. Single straight Incision made to center of most fluctuant area. Sanguinous fluid expelled with manual pressure, no purulent drainage. Wound irrigated and probed for loculations. See above. Pt tolerated the procedure well, no complications. Dressing applied per RN. MDM - Extremity (Nontraumatic) MDM Narrative Medical decision making narrative: Result of xray reviewed with pt. I&D performed to left 3rd toe with minimal drainage; dressing applied. Scheduled with education administrator in 2 days. Discussed physical exam findings. Advised supportive measures and signs/symptoms to go to the ER. Pt is appropriate for outpt treatment and f/u. Differential Diagnosis Differential diagnosis: Likely gout, cellulitis, superficial thrombophlebitis, lower extremity edema and other (ulcer) Imaging Data Radiologist's impression: Patient: Devante Mitchell : 1950 MR#: [id number] Age: 73 Acct:[id number] Loc: [facility]? ? ADM Date: 08/13/23Attending Dr: Ordering Physician: Megan Mcdowell APRN Date of Service: 08/13/23 Procedure(s): XR foot LT 2V Accession Number(s): [id number] cc: Megan Mcdowell APRN; Colby Arias DO~ EXAM:? XR foot LT 2V DATE: 08/13/2023 14:26 HISTORY: infected left 3rd toe ? difficult pt . COMPARISON:? None available. FINDINGS:? Decreased mineralization. No fracture or dislocation. No lytic or blastic lesion. Moderate degenerative changes at the first MTP joint, midfoot, and tibiotalar joint. Moderate Achilles and severe plantar enthesopathy, with plantar fascia calcifications. Prominent fused os navicularis. No erosion or periosteal change. Vascular calcifications. Forefoot soft tissue swelling. Swelling of the third toe with possible soft tissue ulceration. IMPRESSION: No acute osseous finding in the left foot. Specifically, there is no radiographic evidence of osteomyelitis. Discharge Plan Discharge Clinical Impression: Cellulitis of toe, left Patient Disposition: Home, Self-Care Condition: Stable Instructions: Antibiotic Form, Cellulitis (ED) Additional Instructions: You may shower; Cleanse site with warm soapy water Warm compresses at least 4 times a day to the site to help expel any additional drainage. Keep your wound covered while draining Take antibiotic as directed Tylenol every 8 hours for pain as needed Follow up with your primary care physician in 2-3 days for a wound check. Keep scheduled education administrator appointment Go to the Emergency Department immediately if you develop any of the following symptoms: Fevers, Increased redness, pain, or swelling generalized weakness or vomiting or any other concerns Prescriptions: New doxycycline hyclate 100 mg tablet 100 mg PO BID 7 Days Qty: 14 0RF No Action metoprolol succinate 50 mg Tablet Extended Release 24 Hr 50 mg PO DAILY Qty: 30 0RF fluticasone propionate [Allergy Relief (fluticasone)] 50 mcg/actuation spray,suspension 1 spray NASAL DAILY [id number]-uwrup-[id number]-C-jazzy-bor [id number] mg tablet 1 tablet PO DIRECTED Xarelto 20 mg tablet 20 mg PO QPM pravastatin 20 mg tablet 20 mg PO DAILY Qty: 90 1RF betamethasone valerate 0.1 % cream 1 applic TOPICAL DAILY PRN (Reason: skin irritation) Qty: 45 4RF Rx Instructions: apply a thin layer by topical route every day to the affected area arms and hands albuterol sulfate 90 mcg/actuation HFA aerosol inhaler 2 puff INHALATION Q4H PRN (Reason: shortness of breath or wheezing) Qty: 6.7 11RF montelukast 10 mg tablet 10 mg PO DAILY Qty: 90 4RF budesonide-formoterol [Symbicort] 160-4.5 mcg/actuation HFA aerosol inhaler 2 puff inhalation BID Qty: 10.2 2RF lisinopril-hydrochlorothiazide 20-25 mg tablet 1 tablet PO DAILY Qty: 90 1RF Follow-up/Referrals: Colby Arias DO [Primary Care Provider] - Time of Disposition: 15:27
[2023-08-13] MEDS: LIDOCAINE HCL 1% LOCAL INJ 2 ML AMPUL INFILTRATE (15:08)
== END 2023-08-13 15:30 | disposition home or self-care (01) ==
PROVIDERS: Emergency Provider Nurse Practitioner Family; PCP Family Medicine
DX: L03.032 Cellulitis of left toe (principal); I48.20 Chronic atrial fibrillation, unspecified; J45.909 Unspecified asthma, uncomplicated; I10 Essential (primary) hypertension; E11.9 Type 2 diabetes mellitus without complications; Z86.73 Personal history of transient ischemic attack (TIA), and cerebral infarction without residual deficits; Z87.891 Personal history of nicotine dependence
CPT/HCPCS: 10060; 73620; 87070; 87075; 87076; 87077; 87147; 87186; 87205; 99213; G0463

== ENCOUNTER 2023-08-15 13:47 | Inpatient (IN) | payer MEDICARE, SELFPAY ==
--- NOTE | ~2023-08-15 | MR_ITS ---
EXAMINATION: MR foot LT wo con DATE: 08/16/2023 13:48 INDICATION: Osteomyelitis TECHNIQUE: Magnetic resonance imaging (MRI) of the left fore/mid foot was performed without intraveno us contrast. Sequences included sagittal T1-weighted FSE, sagittal fluid sensitive FSE STIR, coronal PD-weighted FS FSE, coronal T1-weighted FSE, axial PD-weighted FS FSE, and axial PD-weighted FSE. COMPARISON: Left foot radiographs dated 08/13/2023 FINDINGS: Normal alignment of the visualized bones. No fractures. Severe osteoarthritis with some reticular song ma-like and cystlike changes at the first metatarsophalangeal joint. Additional moderate osteoarthrit is with subarticular edema-like signal change at the second and third tarsal metatarsal joints and at the articulations between the bases of the second, third and fourth metatarsals.. Mild osteoarthriti s the remaining visualized tarsal metatarsal joints and multiple interphalangeal joints. There is pro minent marrow edema with associated mild geographic loss of T1 marrow signal at the plantar aspect of the cuboid which is included only on the axial images but which raises concern for osteomyelitis. No other evident pathologic marrow replacing process. 14 x 13 x 7 mm multilobulated ganglion cyst dorsa l to the base of the fourth and fifth metatarsals likely arising from one of the tarsal metatarsal bony ints. The visualized portion of the flexor and extensor tendons are normal. There is heterotopic ossi fication along the lateral collateral ligament complex at the first metatarsophalangeal joint. The Li sfranc ligament complex appears normal as do the remaining collateral ligaments at the tarsal metatar xenia and interphalangeal joints. There is fatty atrophy and increased fluid signal throughout the intr insic musculature of the foot which could be seen with acute on chronic denervation change. There is subcutaneous edema overlying the dorsum of the forefoot. IMPRESSION: 1. Increased fluid signal and loss of T1 marrow fat signal along the plantar aspect of the cuboid whi ch is only incompletely visualized at the proximal most margin field of imaging but which raises conc charlie for osteomyelitis. Consider additional MRI of the ankle and hindfoot more complete evaluation. 2. 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 Reviewed, dictated and finalized at location A. IMPRESSION: 1. Increased fluid signal and loss of T1 marrow fat signal along the plantar as pect of the cuboid which is only incompletely visualized at the proximal most m argin field of imaging but which raises concern for osteomyelitis. Consider add itional MRI of the ankle and hindfoot more complete evaluation. 2. 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
[2023-08-15 14:08] VITALS: BP 103/90; PULSE 106; RESP 16; TEMP 37.2; O2SAT 97
--- NOTE | 2023-08-15 15:03 | ED.GENADULT ---
HPI - General Adult General Chief complaint: Extremity Injury, Lower <Delfina Partida, [employer] SERVICE OFFICER - Last Filed: 08/15/23 15:08> Stated complaint: toe infection <Delfina Partida [employer] OFFICER - Last Filed: 08/15/23 15:08> Time Seen by Provider: 08/15/23 15:03 <Delfina Partida, [employer] SERV[employer] OFFICER - Last Filed: 08/15/23 15:08> Focused HPI: Devante Mitchell is a 73 y/o male who presents today with complaints of pain / infection to his left third toe. He states that he saw his general manager road production Dr. Ellington today who debrided the toe and sent him here for IV antibiotics. Reports pain started to toe about 8 days ago and noted to have brown pus from his toe Tuesday , he went to an UC on Tuesday and was started on Doxy BID. Denies any known fevers/ States he is a pre-diabetic GENERAL: in no acute distress. HEAD: Normocephalic, atraumatic. CHEST: Clear to auscultation. ?No respiratory distress. HEART: Regular rate and rhythm.? NEURO: ?Alert and oriented x3. Patient screened in triage and initial orders placed.? ?Additional care and disposition to be based upon?diagnostic testing and treatment. <Delfina Partida, [employer] OFFICER - Last Filed: 08/15/23 15:08> History of Present Illness HPI narrative: Agree with above HPI. <Jignesh Chaidez MD - Last Filed: 08/15/23 19:42> Related Data Home medications: Home Medications Medication Instructions Recorded Confirmed fluticasone propionate 50 1 spray intranasal DAILY 04/10/19 08/13/23 mcg/actuation nasal spray,suspension (Allergy Relief (fluticasone)) glucosamine 375 sl-zjbgltjth-qne 1 tablet PO DIRECTED 04/10/19 08/13/23 no1 500 mg-C 15 mg-jazzy 0.5 mg tablet rivaroxaban 20 mg tablet (Xarelto) 20 mg PO QPM 04/10/19 08/13/23 <Delfina Partida [employer] OFFICER - Last Filed: 08/15/23 15:08> Allergies/adverse reactions: Allergies Allergy/AdvReac Type Severity Reaction Status Date / Time aspirin Allergy Severe Swelling Verified 08/15/23 14:17 of Lip/Tongue/Throat hydrocodone Allergy Severe vomiting Verified 08/15/23 14:17 blood ibuprofen Allergy Severe Anaphylaxis Verified 08/15/23 14:17 ketoprofen Allergy Severe angioedema Verified 08/15/23 14:17 and diarrhea Quinolones Allergy Intermediate halucinatio Verified 08/15/23 14:17 ns Sulfa (Sulfonamide Allergy Unknown Unknown Verified 08/15/23 14:17 Antibiotics) sulfamethizole Allergy Unknown Unknown Verified 08/15/23 14:17 trimethoprim Allergy Unknown Unknown Verified 08/15/23 14:17 <Delfina Partida APRN - Last Filed: 08/15/23 15:08> Review of Systems Review of Systems: All systems reviewed & are unremarkable except as noted in HPI and below <Jignesh Chaidez MD - Last Filed: 08/15/23 19:42> ENT: Reports system reviewed and no additional complaints, except as documented <Jignesh Chaidez MD - Last Filed: 08/15/23 19:42> Cardiovascular: Cardiovascular: Reports no additional cardiovascular complaints <Jignesh Chaidez MD - Last Filed: 08/15/23 19:42> Respiratory: Respiratory: Reports no additional respiratory complaints <Jignesh Chaidez MD - Last Filed: 08/15/23 19:42> Gastrointestinal: Gastrointestinal: Reports no additional gastrointestinal complaints <Jignesh Chaidez MD - Last Filed: 08/15/23 19:42> Musculoskeletal: Musculoskeletal: Reports no additional musculoskeletal complaints <Jignesh Chaidez MD - Last Filed: 08/15/23 19:42> Integumentary/Breasts: Skin/Breast: Reports erythema and Reports skin ulcer <Jignesh Chaidez MD - Last Filed: 08/15/23 19:42> PMF Past Medical History Medical History: Medical History Abnormal results of kidney function studies Afib chronic. Angioedema Associated with ASA and NSAIDs Asthma Benign essential HTN CVA (cerebral vascular accident) September 2018 with residual vision loss Hypogonadism Type 2 diabetes mellitus without complication, without long-term current use of insulin <Delfina Acevedo
[2023-08-15 16:55] LABS: Basophils Absolute Auto 0.1 K/mm3 (0.0-0.1); Basophils Percent Auto 0.5 % (0.2-1.2); Eosinophils Absolute Auto 0.2 K/mm3 (0-0.3); Hemoglobin 14.1 g/dL (14.0-18.0); Immature Granulocyte Absolute 0.03 K/mm3 (0.00-0.031); Immature Granulocyte Percent A 0.3 % (0-0.5); Lymphocytes Absolute Auto 2.21 K/mm3 (0.9-3.2); Lymphocytes Percent Auto 20.1 % (18.3-44.2); Mean Corpuscular HGB Conc 32.8 g/dl (32-36); Mean Corpuscular Hemoglobin 30.3 pg (26-34); Mean Corpuscular Volume 92.5 fl (80-100); Mean Platelet Volume 10.2 fl (7.4-10.4); Monocytes Absolute Auto 1.1 K/mm3 (0.1-0.6); Monocytes Percent Auto 9.7 % (2.6-8.5); Neutrophils Absolute Auto 7.4 K/mm3 (1.3-6.7); Neutrophils Percent Auto 67.4 % (45.5-73.1); Platelet Count Result 302 k/mm3 (150-375); Red Blood Count 4.65 M/mm3 (4.6-6.20); Red Cell Distribution Width 13.4 % (11.5-14.5)
[2023-08-15 17:03] LABS: INR 1.3; Prothrombin Time 16.6 Seconds (11.1-14.7)
[2023-08-15 17:04] LABS: Partial Thromboplastin Time 37.6 Seconds (22.3-36.8)
[2023-08-15 17:06] LABS: Lactic Acid Reflex 1.3 mmol/L (0.7-2.0)
[2023-08-15 17:07] LABS: Alanine Aminotransferase 22 U/L (6-50); Albumin Level 4.7 g/dL (3.5-5.1); Alkaline Phosphatase 97 U/L (38-126); Anion Gap 8 mmol/L (4-12); Aspartate Amino Transferase 26 U/L (17-59); Bilirubin,Total 0.7 mg/dL (0.2-1.3); Blood Urea Nitrogen 28 mg/dL (9-20); CRP 2.5 mg/dL (<1.0); Calcium 9.9 mg/dL (8.4-10.2); Carbon Dioxide 25 mmol/L (22-30); Chloride 107 mmol/L (98-107); Estimated CRCL calculation 93 ml/min; Estimated Glomerular Filt Rate > 60; Glucose 107 mg/dL (65-110); Potassium 4.2 mmol/L (3.4-5.0); Sodium 140 mmol/L (137-145)
[2023-08-15] MEDS: CEFEPIME 2 GM/NS 50 ML 2 GM/50 ML BAG IVPB (19:39)
[2023-08-15] MEDS: metroNIDAZOLE 500 MG/ISO 100ML 500 MG/100 ML BAG 100 MG IVPB (20:02)
--- NOTE | 2023-08-15 20:04 | PM.IMHP ---
H&P: HPI History of Present Illness Date/Time: 08/15/23 20:04 Chief Complaint: toe ulcer Narrative: This is a 73-year-old male with past medical history significant for morbid obesity, obstructive sleep apnea on CPAP at nighttime. Patient comes from podiatry's office due to worsening left 3rd toe ulcer with redness, warmth. patient had a procedure done at the clinic and came to the emergency room afterwards. patient denies fevers, rigors, chills, night sweats, nausea, vomiting, diarrhea, generalized malaise. Patient has been started on IV antibiotics. Patient has been admitted for further evaluation management and treatment. EXAM:? XR foot LT 2V DATE: 08/13/2023 14:26 HISTORY: infected left 3rd toe ? difficult pt . COMPARISON:? None available. FINDINGS:? Decreased mineralization. No fracture or dislocation. No lytic or blastic lesion. Moderate degenerative changes at the first MTP joint, midfoot, and tibiotalar joint. Moderate Achilles and severe plantar enthesopathy, with plantar fascia calcifications. Prominent fused os navicularis. No erosion or periosteal change. Vascular calcifications. Forefoot soft tissue swelling. Swelling of the third toe with possible soft tissue ulceration. IMPRESSION: No acute osseous finding in the left foot. Specifically, there is no radiographic evidence of osteomyelitis. Review of Systems Review of Systems: left 3rd toe ulcer, redness, warmth. Constitutional: Constitutional: Denies chills, Denies fatigue, Denies fever(s), Denies malaise, Denies night sweats and Denies weakness Eyes: Eyes: Denies change in vision ENT: Denies dysphagia and Denies vertigo Cardiovascular: Cardiovascular: Denies chest pain, Denies leg edema, Denies radiating jaw, neck or arm pain and Denies palpitations Respiratory: Respiratory: Denies cough and Denies dyspnea Gastrointestinal: Gastrointestinal: Denies abdominal pain, Denies diarrhea, Denies nausea and Denies vomiting Genitourinary: Genitourinary: Denies dysuria Musculoskeletal: Musculoskeletal: Reports other Integumentary/Breasts: Skin/Breast: Reports erythema and Reports skin ulcer ( left 3rd toe ulcer) Neurologic: Denies focal weakness and Denies Sensory deficit (Neuro) Psychiatric: Psychiatric: Reports no additional psychiatric complaints and Reports as per HPI Endocrine: Endocrine: Denies cold intolerance, Denies fatigue, Denies flushing, Denies heat intolerance, Denies polyphagia, Denies polydipsia, Denies polyuria and Denies palpitations Hematologic/Lymphatic: Hematologic/Lymphatic: Reports no additional hematologic/lymphatic complaints and Reports as per HPI Allergic/Immunologic: Allergic/Immunologic: Reports no additional allergic/immunologic complaints and Reports as per HPI PMFSH Past Medical History Medical History Abnormal results of kidney function studies Afib chronic. Angioedema Associated with ASA and NSAIDs Asthma Benign essential HTN CVA (cerebral vascular accident) September 2018 with residual vision loss Hypogonadism Type 2 diabetes mellitus without complication, without long-term current use of insulin Family History Family History Mother Mesothelioma Father Family history of congestive heart failure Social History Social History Social History: Patient lives with his Lena. He is a full code. He smoked cigars until about 1987. Smoked 1-2 cigars per week on occasion. No drug use. Drinks 2 alcoholic drinks per week. Smoking status: Never smoker Alcohol intake: never Drinks per week: 2 Alcohol use details: occasionally, beer Substance use: never Substance use type: does not use Do You Feel Safe in your Home?: Yes Lack of Transportation: No Lack of Food: Never True Current Housing: I Have Housing Concerned About Future H
[2023-08-15] MEDS: VANCOMYCIN 1,250 MG/NS 250 ML 1,250 MG/250 ML BAG 166.67 MG IVPB ×2 (21:15→22:46)
--- NOTE | 2023-08-15 21:27 | ADMGEN ---
This patient, Devante Mitchell, was admitted to Medical Room 252-01. Patient/family oriented to hospital policies and general routines including ID bracelet, bed and alarms, visiting hours, pain management, procedures, bathroom and other care routines, personal items, smoking policy, room service/diet, and visiting hours. Information on how to activate the Rapid Response Team has been discussed. Patient/Family are encouraged to report perceived risks to care and to ask questions if they do not understand what they are told or what they should do.
[2023-08-15 21:29] VITALS: BP 134/64; PULSE 85; RESP 16; TEMP 36.8; O2SAT 95
[2023-08-16] VITALS (8 sets, daily range): BP systolic 105–135; BP diastolic 56–69; PULSE 74–89; RESP 16–24; TEMP 36.4–36.8; O2SAT 96–98
[2023-08-16] MEDS: ACETAMINOPHEN 500 MG TABLET 1000 MG PO (00:49)
[2023-08-16] MEDS: metroNIDAZOLE 500 MG/ISO 100ML 500 MG/100 ML BAG 100 MG IVPB (03:42)
[2023-08-16 05:52] LABS: Estimated CRCL calculation 85 ml/min; Estimated Glomerular Filt Rate > 60
--- NOTE | 2023-08-16 06:52 | PM.IMPN ---
Progress Note: A&P Assessment and Plan (1) Toe ulcer: Code(s): L97.509 - Non-pressure chronic ulcer of other part of unspecified foot with unspecified severity Status: Acute Assessment and Plan: Patient recently came to the ED for redness and swelling to the left middle toe on 08/12. A left XR foot revealed no radiographic evidence of osteomyelitis. He underwent an abscess I/D to the 3rd toe with minimal drainage. Wound cultures had gram - bacilli and group B strep isolated. He was discharged home on doxycycline with plan to follow up with his assembly line inspector as scheduled on 08/14. He presented to podiatry emergently due to worsening infection and had a debridement performed by Dr. Ellington. - MRI left foot ordered to rule out osteomyelitis and deeper abscess formation - Broad spectrum abx: vancomycin, flagyl, and cefepime - Podiatry Dr. Ellington recommends continued IV abx until infection fully resolves. He plans to perform a flexor tenotomy outpatient to prevent recurrence. - MRSA PCR pending. If negative can DC vancomycin. (2) Type 2 diabetes mellitus without complication, without long-term current use of insulin: Code(s): E11.9 - Type 2 diabetes mellitus without complications Status: Acute Assessment and Plan: - hypoglycemia protocol - POC blood glucose ACHS - home medication - none. diet controlled - correct regimen ordered - low dose TIDWM and HS - A1C ordered (3) Paroxysmal atrial fibrillation: Code(s): I48.0 - Paroxysmal atrial fibrillation Status: Acute Assessment and Plan: Rate controlled. - Continue metoprolol 50 mg daily (4) Hypertension: Code(s): I10 - Essential (primary) hypertension Status: Acute Assessment and Plan: Well controlled on home medications. Continue home medications. - Lisinopril 20 mg daily - Metoprolol 50 mg daily - Hydrochlorothiazide 25 mg daily - Monitor (5) COPD with asthma: Code(s): J44.9 - Chronic obstructive pulmonary disease, unspecified Status: Chronic Assessment and Plan: No acute exacerbation. Not actively wheezing. (6) Morbid (severe) obesity due to excess calories: Code(s): E66.01 - Morbid (severe) obesity due to excess calories Status: Acute Assessment and Plan: recommend lifestyle and diet modification (7) Obstructive sleep apnea on CPAP: Code(s): G47.33 - Obstructive sleep apnea (adult) (pediatric) Status: Acute Assessment and Plan: continue CPAP at nighttime (8) Cerebrovascular accident (CVA) due to bilateral embolism of anterior cerebral arteries: Code(s): I63.423 - Cerebral infarction due to embolism of bilateral anterior cerebral arteries Status: Acute Assessment and Plan: CVA in 2019. MRI 10/02/18 revealed small left occipital lobe regions of acute infarction. Residual vision loss. Continue home medications. - rivaroxaban 20 mg daily - pravastatin 20 mg dialy Time Spent With Patient Time with patient: 25 - 35 minutes Subjective Date/time seen: 08/16/23 06:52 Interval history: 73 year old male with past medical history of atrial fibrillation, type 2 diabetes, asthma, hypertension, and CVA (09/2018 with residual vision loss) presents to the hospital for worsening left 3rd toe ulcer with redness and warmth. Patient recently came to the ED for redness and swelling to the left middle toe on 08/12. A left XR foot revealed no radiographic evidence of osteomyelitis. He underwent an abscess I/D to the 3rd toe with minimal drainage. He was discharged home on doxycycline with plan to follow up with his assembly line inspector as scheduled on 08/14. He presented to podietry emergently due to worsening infection and had a debridement performed by Dr. Ellington. Patient is pleasant sitting up in his chair. He states that the ulcer was having brown discharge on Tuesday that has since subsided and is now serosanguineous. He denies any pain at this benigno
[2023-08-16 07:02] LABS: Basophils Absolute Auto 0.1 K/mm3 (0.0-0.1); Basophils Percent Auto 0.6 % (0.2-1.2); Eosinophils Absolute Auto 0.2 K/mm3 (0-0.3); Eosinophils Percent Auto 2.2 % (0-4.4); Hematocrit 40.3 % (42.0-52.0); Hemoglobin 13.1 g/dL (14.0-18.0); Immature Granulocyte Absolute 0.03 K/mm3 (0.00-0.031); Immature Granulocyte Percent A 0.3 % (0-0.5); Lymphocytes Absolute Auto 1.14 K/mm3 (0.9-3.2); Lymphocytes Percent Auto 11.5 % (18.3-44.2); Mean Corpuscular HGB Conc 32.5 g/dl (32-36); Mean Corpuscular Hemoglobin 30.3 pg (26-34); Mean Corpuscular Volume 93.3 fl (80-100); Mean Platelet Volume 10.6 fl (7.4-10.4); Monocytes Absolute Auto 1.4 K/mm3 (0.1-0.6); Monocytes Percent Auto 14.4 % (2.6-8.5); Platelet Count Result 284 k/mm3 (150-375); Red Blood Count 4.32 M/mm3 (4.6-6.20); Red Cell Distribution Width 13.3 % (11.5-14.5); White Blood Count 9.9 K/mm3 (4.5-10.0)
[2023-08-16 07:08] LABS: Alanine Aminotransferase 21 U/L (6-50); Alkaline Phosphatase 84 U/L (38-126); Anion Gap 9 mmol/L (4-12); Aspartate Amino Transferase 28 U/L (17-59); Bilirubin,Total 0.8 mg/dL (0.2-1.3); Blood Urea Nitrogen 26 mg/dL (9-20); Calcium 9.4 mg/dL (8.4-10.2); Carbon Dioxide 22 mmol/L (22-30); Chloride 110 mmol/L (98-107); Estimated CRCL calculation 93 ml/min; Estimated Glomerular Filt Rate > 60; Glucose 135 mg/dL (65-110); Potassium 3.8 mmol/L (3.4-5.0); Sodium 141 mmol/L (137-145)
--- NOTE | 2023-08-16 08:06 | PCWOUND ---
WOCN NOTE Patient under care of Dr Ellington for foot wound.
--- NOTE | 2023-08-16 08:27 | PM.IMHP ---
H&P: HPI History of Present Illness Date/Time: 08/16/23 08:27 Chief Complaint: Infected left 2nd toe Narrative: The patient seen at bedside admitted through ED yesterday 08/15/23 for a diabetic foot infection to the left second digit that started drainging from a callus 07/31/23. He states he tried to treat the wound himself with OTC topical antibiotics. He went to [facility] in [place] 08/13/23 as the redness drainage and swelling worsened. He was discharged on Doxycycline and deep wound culture swab was taken. He presented to my office emergently with a suspected infection. I performed a debridment at bedside and recommended admission to the hospital for IV abx. No constitutional symptoms. Review of Systems Review of Systems: NO FCNV. Otherwise see chart. 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 [facility] Past Medical History Medical History Abnormal results of kidney function studies Afib chronic. Angioedema Associated with ASA and NSAIDs Asthma Benign essential HTN CVA (cerebral vascular accident) September 2018 with residual vision loss Hypogonadism Type 2 diabetes mellitus without complication, without long-term current use of insulin Family History Family History Mother Mesothelioma Father Family history of congestive heart failure Social History Social History Social History: Patient lives with his Lena. He is a full code. He smoked cigars until about 1987. Smoked 1-2 cigars per week on occasion. No drug use. Drinks 2 alcoholic drinks per week. Smoking status: Never smoker Alcohol intake: never Drinks per week: 2 Alcohol use details: occasionally, beer Substance use: never Substance use type: does not use Do You Feel Safe in your Home?: Yes Lack of Transportation: No Lack of Food: Never True Current Housing: I Have Housing Concerned About Future Housing: No Difficulty Paying Gas/Electric Bills: No Difficulty Paying for Meds: No Currently Unemployed: No Education: Master's Degree or Higher Difficulty w/ Childcare or Family Care: No Gender identity (if verbalized by the patient): Male Spiritual care concerns: No Meds Home Medications and Allergies Home Medications Medication Instructions Recorded Confirmed Type fluticasone propionate 50 1 spray intranasal DAILY 04/10/19 08/15/23 History mcg/actuation nasal spray,suspension (Allergy Relief (fluticasone)) glucosamine 375 [id number] 1 tablet PO DAILY 04/10/19 08/15/23 History no1 500 mg-C 15 mg-jazzy 0.5 mg tablet rivaroxaban 20 mg tablet (Xarelto) 20 mg PO QPM 04/10/19 08/15/23 History metoprolol succinate 50 mg 50 mg PO DAILY #30 tabs 06/21/21 08/15/23 Rx tablet,extended release 24 hr pravastatin 20 mg tablet 20 mg PO DAILY #90 tabs 02/17/23 08/15/23 Rx betamethasone valerate 0.1 % 1 applic topical DAILY PRN skin 02/24/23 08/15/23 Rx topical cream irritation #45 grams albuterol sulfate 90 mcg/actuation 2 puff inhalation Q4H PRN 05/20/23 08/15/23 Rx aerosol inhaler shortness of breath or wheezing #6.7 grams montelukast 10 mg tablet 10 mg PO DAILY #90 tabs 06/03/23 08/15/23 Rx budesonide-formoterol HFA 160 2 puff inhalation BID #10.2 grams 07/11/23 08/15/23 Rx mcg-4.5 mcg/actuation aerosol inhaler (Symbicort) lisinopril 20 1 tablet PO DAILY #90 tabs 07/18/23 08/15/23 Rx mg-hydrochlorothiazide 25 mg tablet doxycycline hyclate 100 mg tablet 100 mg PO BID 7 days #14 tabs 08/13/23 08/15/23 Rx acetaminophen 500 mg tablet 1,000 mg PO Q6H PRN Pain (Scale 08/15/23 08/15/23 History Score 1-3) Allergies Allergy/AdvReac Type Severity Reaction Status Date / Time aspirin Allergy Severe Swelling Verified 08/15/23 14:17 of Lip/To
[2023-08-16] MEDS: MONTELUKAST SODIUM 10 MG TABLET PO (08:39)
[2023-08-16] MEDS: METOPROLOL SUCCINATE EXT REL 50 MG TABCR PO (08:39)
[2023-08-16] MEDS: PRAVASTATIN SODIUM 20 MG TABLET PO (08:39)
[2023-08-16] MEDS: FLUTICASONE PROPIONATE 0.05% NA SPR 16 GM BTL (*BKC) 1 SPRAY NASAL (08:39)
[2023-08-16] MEDS: CEFEPIME 2 GM/NS 50 ML 2 GM/50 ML BAG IVPB (08:39)
[2023-08-16] MEDS: lisinopriL 20 MG TABLET PO (08:40)
[2023-08-16] MEDS: hydroCHLOROthiazide 25 MG TABLET PO (08:40)
[2023-08-16] MEDS: FLUTICASONE/SALMETEROL 115-21 MCG INHALER 1 PUFF 2 PUFF INHALATION ×2 (09:06→20:04)
[2023-08-16] MEDS: VANCOMYCIN 1,500 MG/NS 500 ML 1,500 MG/500 ML BAG 250 MG IVPB (09:49)
[2023-08-16 11:46] LABS: MRSA (PCR) NOT DETECTED (NOT DETECTE)
[2023-08-16] MEDS: metroNIDAZOLE 500 MG TABLET PO ×2 (14:43→22:13)
[2023-08-16 17:43] LABS: Hemoglobin A1C 6.5 % (<5.7)
[2023-08-16] MEDS: RIVAROXABAN 20 MG TABLET PO (18:41)
[2023-08-16] MEDS: cefTRIAXone 2 GM/NS 100 ML 2 GM/100 ML BAG IVPB (18:41)
[2023-08-17] VITALS (7 sets, daily range): BP systolic 108–120; BP diastolic 57–66; PULSE 76–100; RESP 17–20; TEMP 35.9–36.8; O2SAT 96–99
[2023-08-17] MEDS: metroNIDAZOLE 500 MG TABLET PO ×3 (05:29→21:12)
[2023-08-17 06:05] LABS: Basophils Absolute Auto 0.1 K/mm3 (0.0-0.1); Basophils Percent Auto 0.9 % (0.2-1.2); Eosinophils Absolute Auto 0.2 K/mm3 (0-0.3); Eosinophils Percent Auto 3.1 % (0-4.4); Hematocrit 42.1 % (42.0-52.0); Hemoglobin 13.6 g/dL (14.0-18.0); Immature Granulocyte Absolute 0.03 K/mm3 (0.00-0.031); Immature Granulocyte Percent A 0.4 % (0-0.5); Lymphocytes Absolute Auto 1.55 K/mm3 (0.9-3.2); Mean Corpuscular HGB Conc 32.3 g/dl (32-36); Mean Corpuscular Volume 92.7 fl (80-100); Mean Platelet Volume 9.9 fl (7.4-10.4); Monocytes Absolute Auto 1.1 K/mm3 (0.1-0.6); Monocytes Percent Auto 16.1 % (2.6-8.5); Neutrophils Percent Auto 57.5 % (45.5-73.1); Platelet Count Result 296 k/mm3 (150-375); Red Blood Count 4.54 M/mm3 (4.6-6.20); Red Cell Distribution Width 13.4 % (11.5-14.5)
[2023-08-17 06:22] LABS: Alanine Aminotransferase 27 U/L (6-50); Albumin Level 4.4 g/dL (3.5-5.1); Alkaline Phosphatase 76 U/L (38-126); Anion Gap 9 mmol/L (4-12); Aspartate Amino Transferase 41 U/L (17-59); Bilirubin,Total 0.8 mg/dL (0.2-1.3); Blood Urea Nitrogen 23 mg/dL (9-20); Calcium 9.4 mg/dL (8.4-10.2); Carbon Dioxide 25 mmol/L (22-30); Chloride 104 mmol/L (98-107); Estimated CRCL calculation 93 ml/min; Estimated Glomerular Filt Rate > 60; Glucose 119 mg/dL (65-110); Sodium 138 mmol/L (137-145)
[2023-08-17] MEDS: FLUTICASONE/SALMETEROL 115-21 MCG INHALER 1 PUFF 2 PUFF INHALATION ×2 (07:36→20:49)
[2023-08-17] MEDS: hydroCHLOROthiazide 25 MG TABLET PO (08:32)
[2023-08-17] MEDS: PRAVASTATIN SODIUM 20 MG TABLET PO (08:33)
[2023-08-17] MEDS: lisinopriL 20 MG TABLET PO (08:33)
[2023-08-17] MEDS: METOPROLOL SUCCINATE EXT REL 50 MG TABCR PO (08:34)
[2023-08-17] MEDS: MONTELUKAST SODIUM 10 MG TABLET PO (08:35)
[2023-08-17] MEDS: FLUTICASONE PROPIONATE 0.05% NA SPR 16 GM BTL (*BKC) 1 SPRAY NASAL (08:38)
[2023-08-17] MEDS: ACETAMINOPHEN 500 MG TABLET 1000 MG PO (08:40)
--- NOTE | 2023-08-17 13:46 | PM.IMPN ---
Progress Note: A&P Assessment and Plan (1) Toe ulcer: Code(s): L97.509 - Non-pressure chronic ulcer of other part of unspecified foot with unspecified severity Status: Acute Assessment and Plan: Patient recently came to the ED for redness and swelling to the left middle toe on 08/12. A left XR foot revealed no radiographic evidence of osteomyelitis. He underwent an abscess I/D to the 3rd toe with minimal drainage. Wound cultures had gram - bacilli and group B strep isolated. He was discharged home on doxycycline with plan to follow up with his photographic artist as scheduled on 08/14. He presented to podiatry emergently due to worsening infection and had a debridement performed by Dr. Ellington. - MRI left foot concern for osteomyelitis. - Abx vancomycin, flagyl, and cefepime (08/14) transitioned to Flagyl and Rocephin on 08/15 - Podiatry Dr. Ellington recommends continued IV abx until infection fully resolves. He plans to perform a flexor tenotomy outpatient to prevent recurrence. - MRSA PCR nonreactive. (2) Type 2 diabetes mellitus without complication, without long-term current use of insulin: Code(s): E11.9 - Type 2 diabetes mellitus without complications Status: Acute Assessment and Plan: - hypoglycemia protocol - POC blood glucose ACHS - home medication - none. diet controlled - correct regimen ordered - low dose TIDWM and HS - A1C 6.5 (3) Paroxysmal atrial fibrillation: Code(s): I48.0 - Paroxysmal atrial fibrillation Status: Acute Assessment and Plan: Rate controlled. - Continue metoprolol 50 mg daily (4) Hypertension: Code(s): I10 - Essential (primary) hypertension Status: Acute Assessment and Plan: Well controlled on home medications. Continue home medications. - Lisinopril 20 mg daily - Metoprolol 50 mg daily - Hydrochlorothiazide 25 mg daily - Monitor (5) COPD with asthma: Code(s): J44.9 - Chronic obstructive pulmonary disease, unspecified Status: Chronic Assessment and Plan: No acute exacerbation. Not actively wheezing. (6) Morbid (severe) obesity due to excess calories: Code(s): E66.01 - Morbid (severe) obesity due to excess calories Status: Acute Assessment and Plan: recommend lifestyle and diet modification (7) Obstructive sleep apnea on CPAP: Code(s): G47.33 - Obstructive sleep apnea (adult) (pediatric) Status: Acute Assessment and Plan: continue CPAP at nighttime (8) Cerebrovascular accident (CVA) due to bilateral embolism of anterior cerebral arteries: Code(s): I63.423 - Cerebral infarction due to embolism of bilateral anterior cerebral arteries Status: Acute Assessment and Plan: CVA in 2019. MRI 10/02/18 revealed small left occipital lobe regions of acute infarction. Residual vision loss. Continue home medications. - rivaroxaban 20 mg daily - pravastatin 20 mg dialy Subjective Date/time seen: 08/17/23 13:46 Interval history: Patient doing well today. Patient complains of minimal pain. He states that he is not being treated for diabetes at this time but has been a long-standing prediabetic. He states that he does have some neuropathy but can still feel his feet. States that he never had much pain in his left foot/toe and that it was more discoloration and drainage that brought him to the hospital. He denies fevers at home, nausea, vomiting, chest pain shortness a breath. Exam Narrative: GENERAL: Comfortable, no acute distress HENMT: moist mucous membranes EYES: EOM intact b/l NECK: no lymphadenopathy RESPIRATORY: clear to auscultation, no increased respiratory effort CARDIO: Regular rate and rhythm GI: soft, nontender, bowel sounds present SKIN/EXTREMITIES: left foot bandage dry and intact. NEURO: PROM intact, answers questions appropriately, A&O x4 Objective Data Vital Signs Vital Signs: Vital Signs - 24 hr 08/16/23 14:00 0
--- NOTE | 2023-08-17 17:02 | WPDPN ---
Progress Note: A&P Assessment and Plan (1) Infection of toe: Code(s): L08.9 - Local infection of the skin and subcutaneous tissue, unspecified Status: Acute Assessment and Plan: -Clinical sings of infection improving with IV abx. Skin lines now present erythema resolving. WBC 7.0 WNL. Continue with IV abx for an additional day. D/c on oral abx per ID/internal medicine per C&S results. -MRI shows no evidence of loss of T1 signal of the distal phalanx of the second digit left foot, indicating no evidence of osteomyelitis. The radiology report discusses the cuboid bone increase in signal intensity, this area is not contiguous with the ulceration/involved area. -Once d/c the patient will apply Aquacell AG foam to the affected area. This will be mailed to the patients home. - Flexor tenotomy will be performed as an outpatient procedure once d/c to decrease the plantar pressure to the distal digit. -Weight bearing with surgical shoe at all times! Dr. Ellington [phone] Subjective Date/time seen: 08/17/23 17:02 Interval history: Day 2 IV abx for ulceration of the second digit left foot with cellulitis. Seen at bedside resting comfortably. No FCNV. Exam Skin: Other: Less edema, less erythema. Skin lines now present. No purulence. Only serosanguineous drainage noted to subcutaneous layer appears to be granulating nicely. 1cm in diameter. No tunneling noted. Objective Data Vital Signs Vital Signs: Vital Signs - 24 hr 08/16/23 20:12 08/16/23 20:13 08/16/23 20:35 Temperature 36.4 C Pulse Rate 89 74 Respiratory Rate 18 Blood Pressure 110/62 Pulse Oximetry 96 97 Oxygen Delivery Room Air CPAP Fraction of Inspired Oxygen 21 08/16/23 20:25 08/16/23 23:35 08/17/23 02:24 Temperature Pulse Rate 76 Respiratory Rate Blood Pressure Pulse Oximetry 97 Oxygen Delivery CPAP CPAP CPAP Fraction of Inspired Oxygen 08/17/23 05:34 08/17/23 07:35 08/17/23 07:35 Temperature 36.8 C Pulse Rate 76 77 77 Respiratory Rate 20 18 18 Blood Pressure 120/66 Pulse Oximetry 96 97 Oxygen Delivery Room Air Fraction of Inspired Oxygen 08/17/23 08:00 08/17/23 16:01 Temperature 35.9 C L Pulse Rate 87 Respiratory Rate 17 Blood Pressure 117/64 Pulse Oximetry 99 Oxygen Delivery Room Air Fraction of Inspired Oxygen Intake/Output Intake/Output: Intake & Output 08/14/23 08/15/23 08/16/23 08/17/23 23:59 23:59 23:59 23:59 Intake Total 400 2120 1050 Balance 400 2120 1050 Meds/Results Medications: Active Medications Generic Name Dose Route Start Last Admin Trade Name Freq PRN Reason Stop Dose Admin Acetaminophen 650 mg 08/15/23 19:25 Acetaminophen 325 Mg Tablet PO Q4H PRN Mild Pain (1-3) or Fever Acetaminophen 1,000 mg 08/15/23 22:32 08/17/23 08:40 Acetaminophen 500 Mg Tablet PO 1,000 mg Q6H PRN Administration Pain (Scale Score 1-3) Albuterol 2 puff 08/15/23 22:32 Albuterol Sulfate (*Sp) Aerosol 1 Puff INHALATION Q4HRT PRN shortness of breath or wheezing Calcium Carbonate 200 mg 08/17/23 16:11 Calcium Carbonate (Tums) 500 Mg (200 Mg Elemental) PO Q6H PRN Indigestion Fluticasone Propionate 1 spray 08/16/23 09:00 08/17/23 08:38 Fluticasone Propionate 0.05% Na Spr 16 Gm Btl (*Bkc) NASAL 1 spray DAILY CELE Administration Hydrochlorothiazide 25 mg 08/16/23 09:00 08/17/23 08:32 Hydrochlorothiazide 25 Mg Tablet PO 09/15/23 08:59 25 mg DAILY CELE Administration Ceftriaxone Sodium 2 gm in 100 mls @ 200 mls/hr 08/16/23 18:00 08/16/23 18:41 Rocephin 2 Gm/Ns 100 Ml IVPB 200 mls/hr Q24H CELE Administration Lisinopril 20 mg 08/16/23 09:00 08/17/23 08:33 Lisinopril 20 Mg Tablet PO 09/15/23 08:59 20 mg DAILY CELE Administration Metoprolol Succinate 50 mg 08/16/23 09:00 08/17/23 08:34 Metoprolol Succinate Ext Rel 50 Mg Tabcr PO 50 mg DAILY CELE Admi
[2023-08-17] MEDS: RIVAROXABAN 20 MG TABLET PO (17:08)
[2023-08-17] MEDS: CALCIUM CARBONATE (TUMS) 500 MG (200 MG ELEMENTAL) PO ×2 (17:08→22:38)
[2023-08-17] MEDS: cefTRIAXone 2 GM/NS 100 ML 2 GM/100 ML BAG IVPB (17:11)
[2023-08-17 20:33] LABS: Glucose Point of Care 126 mg/dl (65-105)
[2023-08-17] MEDS: MAG HYDROX/AL HYDROX/SIMETH 30 ML UDC PO (23:54)
[2023-08-18 05:13] LABS: Basophils Percent Auto 0.4 % (0.2-1.2); Eosinophils Absolute Auto 0.2 K/mm3 (0-0.3); Eosinophils Percent Auto 3.1 % (0-4.4); Hematocrit 41.1 % (42.0-52.0); Hemoglobin 13.4 g/dL (14.0-18.0); Immature Granulocyte Absolute 0.03 K/mm3 (0.00-0.031); Immature Granulocyte Percent A 0.4 % (0-0.5); Lymphocytes Absolute Auto 1.31 K/mm3 (0.9-3.2); Lymphocytes Percent Auto 18.7 % (18.3-44.2); Mean Corpuscular HGB Conc 32.6 g/dl (32-36); Mean Corpuscular Volume 91.9 fl (80-100); Mean Platelet Volume 9.9 fl (7.4-10.4); Monocytes Absolute Auto 0.8 K/mm3 (0.1-0.6); Monocytes Percent Auto 11.8 % (2.6-8.5); Neutrophils Absolute Auto 4.6 K/mm3 (1.3-6.7); Neutrophils Percent Auto 65.6 % (45.5-73.1); Platelet Count Result 271 k/mm3 (150-375); Red Blood Count 4.47 M/mm3 (4.6-6.20); Red Cell Distribution Width 13.5 % (11.5-14.5)
[2023-08-18] MEDS: metroNIDAZOLE 500 MG TABLET PO ×2 (05:13→13:56)
[2023-08-18 05:37] LABS: Alanine Aminotransferase 32 U/L (6-50); Alkaline Phosphatase 74 U/L (38-126); Anion Gap 8 mmol/L (4-12); Aspartate Amino Transferase 37 U/L (17-59); Bilirubin,Total 0.6 mg/dL (0.2-1.3); Blood Urea Nitrogen 26 mg/dL (9-20); Calcium 9.2 mg/dL (8.4-10.2); Carbon Dioxide 25 mmol/L (22-30); Chloride 104 mmol/L (98-107); Estimated CRCL calculation 78 ml/min; Estimated Glomerular Filt Rate 60; Glucose 124 mg/dL (65-110); Potassium 3.8 mmol/L (3.4-5.0); Sodium 137 mmol/L (137-145)
[2023-08-18 06:00] VITALS: BP 99/50; PULSE 76; RESP 18; TEMP 36.2; O2SAT 99
[2023-08-18] MEDS: FLUTICASONE/SALMETEROL 115-21 MCG INHALER 1 PUFF 2 PUFF INHALATION (07:44)
[2023-08-18 07:45] VITALS: PULSE 72; RESP 20
[2023-08-18 07:48] VITALS: O2SAT 94
[2023-08-18 08:50] VITALS: PULSE 72
[2023-08-18] MEDS: MONTELUKAST SODIUM 10 MG TABLET PO (08:50)
[2023-08-18] MEDS: lisinopriL 20 MG TABLET PO (08:50)
[2023-08-18] MEDS: hydroCHLOROthiazide 25 MG TABLET PO (08:50)
[2023-08-18] MEDS: PRAVASTATIN SODIUM 20 MG TABLET PO (08:50)
[2023-08-18] MEDS: METOPROLOL SUCCINATE EXT REL 50 MG TABCR PO (08:50)
[2023-08-18] MEDS: FLUTICASONE PROPIONATE 0.05% NA SPR 16 GM BTL (*BKC) 1 SPRAY NASAL (08:56)
--- NOTE | 2023-08-18 12:01 | PC.NURSE ---
On 08/18/23, the student, [Julia Linder], provided care and completed [facility] documentation on this patient. I have reviewed the student's documentation and agree with the findings.
[2023-08-18 14:00] VITALS: BP 112/56; PULSE 76; RESP 20; TEMP 36.6; O2SAT 94
--- NOTE | 2023-08-18 14:32 | PM.DS ---
DS: Admitting Diagnosis Discharge Date 08/18/23 Admitting Diagnosis left foot infection DS: Discharge Diagnosis Discharge Diagnosis (1) Toe ulcer: Code(s): L97.509 - Non-pressure chronic ulcer of other part of unspecified foot with unspecified severity Status: Acute (2) Type 2 diabetes mellitus without complication, without long-term current use of insulin: Code(s): E11.9 - Type 2 diabetes mellitus without complications Status: Acute (3) Paroxysmal atrial fibrillation: Code(s): I48.0 - Paroxysmal atrial fibrillation Status: Acute (4) Hypertension: Code(s): I10 - Essential (primary) hypertension Status: Acute Assessment and Plan: Well controlled on home medications. Continue home medications. - Lisinopril 20 mg daily - Metoprolol 50 mg daily - Hydrochlorothiazide 25 mg daily - Monitor (5) COPD with asthma: Code(s): J44.9 - Chronic obstructive pulmonary disease, unspecified Status: Chronic (6) Morbid (severe) obesity due to excess calories: Code(s): E66.01 - Morbid (severe) obesity due to excess calories Status: Acute (7) Obstructive sleep apnea on CPAP: Code(s): G47.33 - Obstructive sleep apnea (adult) (pediatric) Status: Acute (8) Cerebrovascular accident (CVA) due to bilateral embolism of anterior cerebral arteries: Code(s): I63.423 - Cerebral infarction due to embolism of bilateral anterior cerebral arteries Status: Acute DS: Summary Hospital Course Hospital Course: This is a 73-year-old male with a past medical history of obesity, KAN on CPAP pre diabetes that presented to the ED on 08/15/2023 due to worsening left 3rd toe ulcer with redness, warmth, mild tenderness and swelling. Patient had a procedure done at his sourcing internship's office and once he got home he felt like his toe was worsening. He called his sourcing internship and he recommended going to the hospital for IV antibiotic therapy. X-ray of the left foot showed no acute osseous finding no radiographic evidence of osteomyelitis. Podiatry consulted. Patient was started on vancomycin, cefepime and Flagyl. MRSA screen came back negative. wound cultures were drawn. Wound culture grew peptostreptococcus species, E coli and group B strep. Antibiotics transition to Flagyl and ceftriaxone. Patient's toe improved with IV antibiotic therapy. Blood cultures remained no growth after 72 hours. MRI of the foot did not show any evidence of osteomyelitis. Plan to sent home with p.o. antibiotics and follow up with Podiatry as an outpatient. Patient likely needs to get on diabetic medication. His A1c was 6.4. Advised discussing this with his primary care provider. Time Spent with Patient Time attestation: Total time spent providing and/or coordinating discharge services: Exam Narrative: GENERAL: Comfortable, no acute distress HENMT: moist mucous membranes EYES: EOM intact b/l NECK: no lymphadenopathy RESPIRATORY: clear to auscultation, no increased respiratory effort CARDIO: Regular rate and rhythm GI: soft, nontender, bowel sounds present SKIN/EXTREMITIES: left foot bandage dry and intact. NEURO: PROM intact, answers questions appropriately, A&O x4 DS: Data Data Completed and Pending Labs on day of discharge: Labs from last 24 hours 08/18/23 08/17/23 04:58 20:21 WBC 7.0 RBC 4.47 L Hgb 13.4 L Hct 41.1 L MCV 91.9 MCH 30.0 MCHC 32.6 RDW 13.5 Plt Count 271 MPV 9.9 Immature Gran % (Auto) 0.4 Neut % (Auto) 65.6 Lymph % (Auto) 18.7 Tripp % (Auto) 11.8 H Eos % (Auto) 3.1 Baso % (Auto) 0.4 Lymph # (Auto) 1.31 Tripp # (Auto) 0.8 H Eos # (Auto) 0.2 Baso # (Auto) 0.0 Abs Immat Gran (auto) 0.03 Absolute Neuts (auto) 4.6 Absolute Nucleated RBC 0.000 Nucleated RBC % 0.0 Sodium 137 Potassium 3.8 Chloride 104 Carbon Dioxide 25 Anion Gap 8 BUN 26 H Creatinine 1.20 Estim Creat Clear Calc
--- NOTE | 2023-08-18 15:57 | WPDPN ---
Progress Note: A&P Assessment and Plan (1) Infection of toe: Code(s): L08.9 - Local infection of the skin and subcutaneous tissue, unspecified Status: Acute Assessment and Plan: D/c patient with local wound care with Bactroban 4x4 gauze with skin tape, until the patient received his Aquacell Ag foam. Abx managment per ID/Internal Medicine F/u in my office this Tuesday at 11:30 for a flexor tenotomy of the digits. Less than 200 feet per day of ambulation with a surgical shoe. Cast protector bag with showers to avoid further colonization of the wound. Stable for d/c per podiatry standpoint Subjective Date/time seen: 08/18/23 15:57 Interval history: Day 3 of IV abx for severe diabetic foot infection left 3rd digit. Seen at bedside with no acute complaints. No FCNV. Exam Extrem: Other: Erythema to the affected digit nearly fully resolved. Serous drainage noted on dressing. Objective Data Vital Signs Vital Signs: Vital Signs - 24 hr 08/17/23 16:01 08/17/23 20:48 08/17/23 20:54 Temperature 35.9 C L 36.4 C Pulse Rate 87 92 100 Respiratory Rate 17 18 Blood Pressure 117/64 108/57 L Pulse Oximetry 99 99 97 Oxygen Delivery Room Air Fraction of Inspired Oxygen 21 08/17/23 20:55 08/17/23 23:37 08/17/23 21:05 Temperature Pulse Rate 100 100 Respiratory Rate 18 Blood Pressure Pulse Oximetry 97 Oxygen Delivery CPAP Room Air Fraction of Inspired Oxygen 08/18/23 06:00 08/18/23 07:45 08/18/23 07:48 Temperature 36.2 C L Pulse Rate 76 72 Respiratory Rate 18 20 Blood Pressure 99/50 L Pulse Oximetry 99 94 Oxygen Delivery Room Air Fraction of Inspired Oxygen 08/18/23 08:50 08/18/23 08:00 08/18/23 14:00 Temperature 36.6 C Pulse Rate 72 76 Respiratory Rate 20 Blood Pressure 112/56 L Pulse Oximetry 94 Oxygen Delivery Room Air Fraction of Inspired Oxygen Intake/Output Intake/Output: Intake & Output 08/15/23 08/16/23 08/17/23 08/18/23 23:59 23:59 23:59 23:59 Intake Total 400 2220 2390 1360 Balance 400 2220 2390 1360 Meds/Results Medications: Active Medications Generic Name Dose Route Start Last Admin Trade Name Freq PRN Reason Stop Dose Admin Acetaminophen 650 mg 08/15/23 19:25 Acetaminophen 325 Mg Tablet PO Q4H PRN Mild Pain (1-3) or Fever Acetaminophen 1,000 mg 08/15/23 22:32 08/17/23 08:40 Acetaminophen 500 Mg Tablet PO 1,000 mg Q6H PRN Administration Pain (Scale Score 1-3) Al Hydrox/Mg Hydrox/Simethicone 30 ml 08/17/23 23:45 08/17/23 23:54 Mag Hydrox/Al Hydrox/Simeth 30 Ml Udc PO 30 ml Q4H PRN Administration Indigestion Albuterol 2 puff 08/15/23 22:32 Albuterol Sulfate (*Sp) Aerosol 1 Puff INHALATION Q4HRT PRN shortness of breath or wheezing Fluticasone Propionate 1 spray 08/16/23 09:00 08/18/23 08:56 Fluticasone Propionate 0.05% Na Spr 16 Gm Btl (*Bkc) NASAL 1 spray DAILY CELE Administration Hydrochlorothiazide 25 mg 08/16/23 09:00 08/18/23 08:50 Hydrochlorothiazide 25 Mg Tablet PO 09/15/23 08:59 25 mg DAILY CELE Administration Ceftriaxone Sodium 2 gm in 100 mls @ 200 mls/hr 08/16/23 18:00 08/17/23 17:11 Rocephin 2 Gm/Ns 100 Ml IVPB 0 mls/hr Q24H CELE Infusion Lisinopril 20 mg 08/16/23 09:00 08/18/23 08:50 Lisinopril 20 Mg Tablet PO 09/15/23 08:59 20 mg DAILY CELE Administration Metoprolol Succinate 50 mg 08/16/23 09:00 08/18/23 08:50 Metoprolol Succinate Ext Rel 50 Mg Tabcr PO 50 mg DAILY CELE Administration Metronidazole 500 mg 08/16/23 14:00 08/18/23 13:56 Metronidazole 500 Mg Tablet PO 500 mg Q8HR CELE Administration Montelukast Sodium 10 mg 08/16/23 09:00 08/18/23 08:50 Montelukast Sodium 10 Mg Tablet PO 10 mg DAILY CELE Administration Pravastatin Sodium 20 mg 08/16/23 09:00 08/18/23 08:50 Pravastatin Sodium 20 Mg Tablet PO 20 mg DAILY CELE Administration
== END 2023-08-18 16:50 | disposition home or self-care (01) | DRG 638 ==
LOC: ANHED 19:30 → ANH2MED 22:00
PROVIDERS: Nurse Practitioner Family; Student in an Organized Health Care Education/Training Program; Admitting Provider Internal Medicine; Emergency Provider Emergency Medicine; PCP Family Medicine; Visit Provider Hospitalist
DX: E11.621 Type 2 diabetes mellitus with foot ulcer (principal); L97.528 Non-pressure chronic ulcer of other part of left foot with other specified severity; Z68.42 Body mass index [BMI] 45.0-49.9, adult; L03.032 Cellulitis of left toe; B95.1 Streptococcus, group B, as the cause of diseases classified elsewhere; B96.20 Unspecified Escherichia coli [E. coli] as the cause of diseases classified elsewhere; E66.01 Morbid (severe) obesity due to excess calories; G47.33 Obstructive sleep apnea (adult) (pediatric); H53.9 Unspecified visual disturbance; I48.0 Paroxysmal atrial fibrillation; I10 Essential (primary) hypertension; I69.398 Other sequelae of cerebral infarction; J44.9 Chronic obstructive pulmonary disease, unspecified; Z99.89 Dependence on other enabling machines and devices; Z79.01 Long term (current) use of anticoagulants; Z87.891 Personal history of nicotine dependence
CPT/HCPCS: 36415; 73620; 73718; 80053; 82565; 82948; 83036; 83605; 85025; 85610; 85730; 86140; 87040; 87070; 87075; 87076; 87077; 87147; 87186; 87205; 87641; 94640; 96365; 96366; 96367; 99213; 99285; A9270; G0378; G0463; J0692; J0696; J1836; J3370

== ENCOUNTER 2024-02-20 01:24 | Day surgery (SDC) | payer MEDICARE, SELFPAY ==
[2024-02-03 13:02] VITALS: BMI 47.9
--- NOTE | 2024-02-03 13:41 | PC.NURSE ---
Addendum entered by Libby Sidhu RN 02/14/24 13:10: Pt was rescheduled due to forgetting to hold Xarelto. Original Note: Spoke with _PATIENT_ regarding medication XARELTO_. Pt. verbalizes understanding that the last dose of _XARELTO_ is to be taken on 02/06/2024_ and the Endoscopist will instruct them when to restart after the procedure.
--- NOTE | 2024-02-19 15:16 | WPDANESEPP ---
Anes - Eval Pre Procedure Procedure: Operation Date: 02/20/24 12:30 Proposed Procedures p Colonoscopy - Josh Saba MD Date/Time: 02/19/24 15:16 Pre Op Diagnosis: fecal abnormalities Patient Data Age: 73 Gender: M Height: 1.83 m Weight: 160.5 kg Allergies Allergy/AdvReac Type Severity Reaction Status Date / Time aspirin Allergy Severe Swelling Verified 02/03/24 13:03 of Lip/Tongue/Throat hydrocodone Allergy Severe vomiting Verified 02/03/24 13:03 blood ibuprofen Allergy Severe Anaphylaxis Verified 02/03/24 13:03 ketoprofen Allergy Severe angioedema Verified 02/03/24 13:03 and diarrhea Quinolones Allergy Intermediate halucinatio Verified 02/03/24 13:03 ns Sulfa (Sulfonamide Allergy Intermediate Rash Verified 02/03/24 13:03 Antibiotics) sulfamethizole Allergy Intermediate Rash Verified 02/03/24 13:03 trimethoprim Allergy Intermediate Rash Verified 02/03/24 13:03 Home Medications Medication Instructions Recorded Confirmed Type fluticasone propionate 50 1 spray intranasal DAILY 04/10/19 02/03/24 History mcg/actuation nasal spray,suspension (Allergy Relief (fluticasone)) glucosamine 375 [id number] 3 tablet PO DAILY 04/10/19 02/03/24 History no1 500 mg-C 15 mg-jazzy 0.5 mg tablet rivaroxaban 20 mg tablet (Xarelto) 20 mg PO QPM 04/10/19 02/03/24 History metoprolol succinate 50 mg 50 mg PO DAILY #30 tabs 06/21/21 02/03/24 Rx tablet,extended release 24 hr betamethasone valerate 0.1 % 1 applic topical DAILY PRN skin 02/24/23 02/03/24 Rx topical cream irritation #45 grams albuterol sulfate 90 mcg/actuation 2 puff inhalation Q4H PRN 05/20/23 02/03/24 Rx aerosol inhaler shortness of breath or wheezing #6.7 grams montelukast 10 mg tablet 10 mg PO DAILY #90 tabs 06/03/23 02/03/24 Rx acetaminophen 500 mg tablet 1,000 mg PO Q6H PRN Pain (Scale 08/15/23 02/03/24 History Score 1-3) budesonide-formoterol HFA 160 See Rx Instructions .Route 10/11/23 02/03/24 Rx mcg-4.5 mcg/actuation aerosol .COMPLEX #30.6 grams inhaler (Symbicort) lisinopril 20 1 tablet PO DAILY #90 tabs 10/17/23 02/03/24 Rx mg-hydrochlorothiazide 25 mg tablet gabapentin 300 mg capsule 300 mg PO QHS #30 caps 12/22/23 02/03/24 Rx tamsulosin 0.4 mg capsule 0.4 mg PO DAILY 12/22/23 02/03/24 History pravastatin 20 mg tablet 20 mg PO HS 02/03/24 02/03/24 History Patient hx anesthesia problems: none Family hx anesthesia problems: none Results Review: All pre-operative results and documents have been reviewed as part of the pre-operative evaluation. [facility] Past Medical History Medical History Abnormal results of kidney function studies Afib chronic. Angioedema Associated with ASA and NSAIDs Asthma Benign essential HTN CVA (cerebral vascular accident) September 2018 with residual vision loss Hypogonadism Leg cramps Type 2 diabetes mellitus without complication, without long-term current use of insulin Family History Family History Mother Mesothelioma Father Family history of congestive heart failure Social History Social History Social History: Patient lives with his Lena. He is a full code. He smoked cigars until about 1987. Smoked 1-2 cigars per week on occasion. No drug use. Drinks 2 alcoholic drinks per week. Smoking status: Former smoker Tobacco type: pipe and cigars Alcohol intake: current Drinks per week: 2 Alcohol use details: occasionally, beer Substance use: never Substance use type: does not use Do You Feel Safe in your Home?: Yes Lack of Transportation: No Lack of Food: Never True Current Housing: I Have Housing Concerned About Future Housing: No Difficulty Paying Gas/Electric Bills: No Difficulty Paying for Meds: No Currently Unemployed: No Education: Master's Degree or Higher Difficulty w/ Childcare or Family Care: No Living arrangements: with family Gender identity (if verbalized by the patient): Male Spiritual care concerns: No Exam Day of Procedure 02/19/24 15:16
[2024-02-20 11:24] VITALS: BP 150/87; PULSE 103; RESP 20; TEMP 35.8; O2SAT 98; BMI 47.0
[2024-02-20] MEDS: LACTATED RINGERS 1,000 ML 150 ML IV CONT (11:33)
--- NOTE | 2024-02-20 12:09 | WPDANESEPPF ---
Anes - Initial Pre Proc Eval Procedure: Operation Date: 02/20/24 12:30 Proposed Procedures p Colonoscopy - Josh Saba MD Date/Time: 02/20/24 12:09 Surgeon: Josh Saba MD Pre Op Diagnosis: fecal abnormalities Patient Data Age: 73 Gender: M Height: 1.83 m Weight: 157.5 kg Last Vital Signs Temp 35.8 C L 02/20/24 11:24 Pulse 103 H 02/20/24 11:24 Resp 20 02/20/24 11:24 BP 150/87 H 02/20/24 11:24 Pulse Ox 98 02/20/24 11:24 O2 Del Method Room Air 02/20/24 11:24 Allergies Allergy/AdvReac Type Severity Reaction Status Date / Time aspirin Allergy Severe Swelling Verified 02/20/24 11:19 of Lip/Tongue/Throat hydrocodone Allergy Severe vomiting Verified 02/20/24 11:19 blood ibuprofen Allergy Severe Anaphylaxis Verified 02/20/24 11:19 ketoprofen Allergy Severe angioedema Verified 02/20/24 11:19 and diarrhea Quinolones Allergy Intermediate halucinatio Verified 02/20/24 11:19 ns Sulfa (Sulfonamide Allergy Intermediate Rash Verified 02/20/24 11:19 Antibiotics) sulfamethizole Allergy Intermediate Rash Verified 02/20/24 11:19 trimethoprim Allergy Intermediate Rash Verified 02/20/24 11:19 Home Medications Medication Instructions Recorded Confirmed Type fluticasone propionate 50 1 spray intranasal DAILY 04/10/19 02/20/24 History mcg/actuation nasal spray,suspension (Allergy Relief (fluticasone)) glucosamine 375 [id number]-[id number] 3 tablet PO DAILY 04/10/19 02/20/24 History no1 500 mg-C 15 mg-jazzy 0.5 mg tablet rivaroxaban 20 mg tablet (Xarelto) 20 mg PO QPM 04/10/19 02/20/24 History metoprolol succinate 50 mg 50 mg PO DAILY #30 tabs 06/21/21 02/20/24 Rx tablet,extended release 24 hr albuterol sulfate 90 mcg/actuation 2 puff inhalation Q4H PRN 05/20/23 02/20/24 Rx aerosol inhaler shortness of breath or wheezing #6.7 grams montelukast 10 mg tablet 10 mg PO DAILY #90 tabs 06/03/23 02/20/24 Rx acetaminophen 500 mg tablet 1,000 mg PO Q6H PRN Pain (Scale 08/15/23 02/20/24 History Score 1-3) budesonide-formoterol HFA 160 See Rx Instructions .Route 10/11/23 02/20/24 Rx mcg-4.5 mcg/actuation aerosol .COMPLEX #30.6 grams inhaler (Symbicort) lisinopril 20 1 tablet PO DAILY #90 tabs 10/17/23 02/20/24 Rx mg-hydrochlorothiazide 25 mg tablet gabapentin 300 mg capsule 300 mg PO QHS #30 caps 12/22/23 02/20/24 Rx tamsulosin 0.4 mg capsule 0.4 mg PO DAILY 12/22/23 02/20/24 History pravastatin 20 mg tablet 20 mg PO HS 02/03/24 02/20/24 History betamethasone valerate 0.1 % 1 applic topical DAILY PRN skin 02/20/24 02/20/24 Rx topical cream irritation #45 grams Patient hx anesthesia problems: none Family hx anesthesia problems: none Results Review: All pre-operative results and documents have been reviewed as part of the pre-operative evaluation. [facility] Past Medical History Medical History Abnormal results of kidney function studies Afib chronic. Angioedema Associated with ASA and NSAIDs Asthma Benign essential HTN CVA (cerebral vascular accident) September 2018 with residual vision loss Hypogonadism Leg cramps Type 2 diabetes mellitus without complication, without long-term current use of insulin Family History Family History Mother Mesothelioma Father Family history of congestive heart failure Social History Social History Social History: Patient lives with his Lena. He is a full code. He smoked cigars until about 1987. Smoked 1-2 cigars per week on occasion. No drug use. Drinks 2 alcoholic drinks per week. Smoking status: Former smoker Tobacco type: pipe and cigars Alcohol intake: current Drinks per week: 2 Alcohol use details: occasionally, beer Substance use: never Substance use type: does not use Do You Feel Safe in your Home?: Yes Lack of Transportation: No Lack of Food: Never True Current Housing: I Have Housing Concerned About Future Housing: No Difficulty Paying Gas/Electric Bills: No Difficulty Paying for Meds: No Currently Unemployed: No Education: Master's Degree or Higher Difficulty w/ Childcare or Family Care: No Living arrangements: with family Gender identity (if verbalized by the patient): Male Spiritual care concerns: No Anes - Eval Final PreProcedure Day of Procedure 02/20/24 12:09 Patient weight: morbidly obese Heart: irregular rhythm Lungs: decreased breath sounds Airway: Mallampati scale class III Neurological: alert and oriented Last oral intake: >/= 8 hours ASA classification: III Emergent: no Anesthetic plan: proceed Anesthesia type and monitoring: general GIVS and standard monitoring Results Review: All pre-operative results and documents have been reviewed as part of the pre-operative evaluation. Informed Consent: The patient's anesthetic plan and its attendant risks and benefits were discussed with the patient/family/POA. Questions were solicited and answers provided to the satisfaction of the patient/family/POA.
--- NOTE | 2024-02-20 12:14 | PM.HPGS ---
History of Present Illness History of Present Illness Consent: Risks, benefits, and alternatives have been discussed and questions answered. Patient agrees to proceed with procedure. Chief complaint: fecal abnormalities Narrative: Devante Mitchell is a 73 year old male with + cologuard, last colonoscopy 10 years ago Review of Systems Review of Systems: All systems reviewed & are unremarkable except as noted in HPI and below PMFSH Past Medical History Medical History (Updated 02/20/24 @ 12:15 by Josh Saba MD) Abnormal results of kidney function studies Afib chronic. Angioedema Associated with ASA and NSAIDs Asthma Benign essential HTN CVA (cerebral vascular accident) September 2018 with residual vision loss Hypogonadism Leg cramps Positive colorectal cancer screening using Cologuard test Type 2 diabetes mellitus without complication, without long-term current use of insulin Family History Family History Mother Mesothelioma Father Family history of congestive heart failure Social History Social History Social History: Patient lives with his Lena. He is a full code. He smoked cigars until about 1987. Smoked 1-2 cigars per week on occasion. No drug use. Drinks 2 alcoholic drinks per week. Smoking status: Former smoker Tobacco type: pipe and cigars Alcohol intake: current Drinks per week: 2 Alcohol use details: occasionally, beer Substance use: never Substance use type: does not use Do You Feel Safe in your Home?: Yes Lack of Transportation: No Lack of Food: Never True Current Housing: I Have Housing Concerned About Future Housing: No Difficulty Paying Gas/Electric Bills: No Difficulty Paying for Meds: No Currently Unemployed: No Education: Master's Degree or Higher Difficulty w/ Childcare or Family Care: No Living arrangements: with family Gender identity (if verbalized by the patient): Male Spiritual care concerns: No Meds Home Medications and Allergies Home Medications Medication Instructions Recorded Confirmed Type fluticasone propionate 50 1 spray intranasal DAILY 04/10/19 02/20/24 History mcg/actuation nasal spray,suspension (Allergy Relief (fluticasone)) glucosamine 375 [id number]-jivlxbsbo-agr 3 tablet PO DAILY 04/10/19 02/20/24 History no1 500 mg-C 15 mg-jazzy 0.5 mg tablet rivaroxaban 20 mg tablet (Xarelto) 20 mg PO QPM 04/10/19 02/20/24 History metoprolol succinate 50 mg 50 mg PO DAILY #30 tabs 06/21/21 02/20/24 Rx tablet,extended release 24 hr albuterol sulfate 90 mcg/actuation 2 puff inhalation Q4H PRN 05/20/23 02/20/24 Rx aerosol inhaler shortness of breath or wheezing #6.7 grams montelukast 10 mg tablet 10 mg PO DAILY #90 tabs 06/03/23 02/20/24 Rx acetaminophen 500 mg tablet 1,000 mg PO Q6H PRN Pain (Scale 08/15/23 02/20/24 History Score 1-3) budesonide-formoterol HFA 160 See Rx Instructions .Route 10/11/23 02/20/24 Rx mcg-4.5 mcg/actuation aerosol .COMPLEX #30.6 grams inhaler (Symbicort) lisinopril 20 1 tablet PO DAILY #90 tabs 10/17/23 02/20/24 Rx mg-hydrochlorothiazide 25 mg tablet gabapentin 300 mg capsule 300 mg PO QHS #30 caps 12/22/23 02/20/24 Rx tamsulosin 0.4 mg capsule 0.4 mg PO DAILY 12/22/23 02/20/24 History pravastatin 20 mg tablet 20 mg PO HS 02/03/24 02/20/24 History betamethasone valerate 0.1 % 1 applic topical DAILY PRN skin 02/20/24 02/20/24 Rx topical cream irritation #45 grams Allergies Allergy/AdvReac Type Severity Reaction Status Date / Time aspirin Allergy Severe Swelling Verified 02/20/24 11:19 of Lip/Tongue/Throat hydrocodone Allergy Severe vomiting Verified 02/20/24 11:19 blood ibuprofen Allergy Severe Anaphylaxis Verified 02/20/24 11:19 ketoprofen Allergy Severe angioedema Verified 02/20/24 11:19 and diarrhea Quinolones Allergy Intermediate halucinatio Verified 02/20/24 11:19 ns Sulfa (Sulfonamide Allergy Intermediate Rash Verified 02/20/24 11:19 Antibiotics) sulfamethizole Allergy Intermediate Rash Verified 02/20/24 11:19 trimethoprim Allergy Intermediate Rash Verified 02/20/24 11:19 Vital Signs Vital Signs - 24 hr 02/20/24 11:24 Temperature 96.4 F L Pulse Rate 103 H Respiratory Rate 20 Blood Pressure 150/87 H Pulse Oximetry 98 Oxygen Delivery Room Air Exam Const: General: comfortable and no acute distress HENMT: Face/Nose/Sinus: Normal nares present Eyes: General: appearance normal, both eyes and all related structures Neck: Neck: no JVD Resp: Auscultation: clear to auscultation bilaterally Cardio: Rate: regular rate Rhythm: regular rhythm GI: Inspection: non-distended GI Palp: Yes Soft to palpation Skin: General skin exam: normal color Neuro: General: gait normal Speech: normal speech Extrem: General: normal to inspection Psych: Mental Status: mental status grossly normal Assessment and Plan Assessment and plan (1) Positive colorectal cancer screening using Cologuard test: Code(s): R19.5 - Other fecal abnormalities Status: Acute Assessment and Plan: colonoscopy
[2024-02-20 12:33] VITALS: BP 107/68; PULSE 82; RESP 20; O2SAT 96
[2024-02-20 12:43] VITALS: BP 120/61; PULSE 91; RESP 22; O2SAT 96
[2024-02-20 12:53] VITALS: BP 125/63; PULSE 86; RESP 22; O2SAT 98
== END 2024-02-20 13:15 | disposition home or self-care (01) ==
PROVIDERS: PCP Family Medicine; Visit Provider Internal Medicine Gastroenterology
PROC: 0DJD8ZZ Inspection of Lower Intestinal Tract, Via Natural or Artificial Opening Endoscopic (ICD-10-PCS; CPT 45378; principal; 2024-02-20 12:30)
DX: D12.2 Benign neoplasm of ascending colon (principal); K64.8 Other hemorrhoids; K57.30 Diverticulosis of large intestine without perforation or abscess without bleeding; J45.909 Unspecified asthma, uncomplicated; I10 Essential (primary) hypertension; E29.1 Testicular hypofunction; E11.9 Type 2 diabetes mellitus without complications; E66.01 Morbid (severe) obesity due to excess calories; Z68.42 Body mass index [BMI] 45.0-49.9, adult; Z79.01 Long term (current) use of anticoagulants; Z79.51 Long term (current) use of inhaled steroids; Z87.891 Personal history of nicotine dependence; Z86.79 Personal history of other diseases of the circulatory system; Z80.1 Family history of malignant neoplasm of trachea, bronchus and lung; Z82.49 Family history of ischemic heart disease and other diseases of the circulatory system
CPT/HCPCS: 45385; 88305; J2003; J2704; J7120

== ENCOUNTER 2024-07-12 10:40 | Outpatient (CLI) | payer MEDICARE, SELFPAY ==
--- OUTSIDE RECORDS SUMMARY | 2024-07-12 11:26 | XMS_ITS | Clinical Summary ---
Author Organization [facility] [address] Address [address] [place] [address] Care Team Providers Care Fuel Handler Name Role Phone Verena Jeong MD Primary Care Provider Allergies Active Allergy Reactions Criticality Noted Date Comments Aspirin Edema Medium 11/02/2018 Ibuprofen Edema Medium 11/02/2018 Ketoprofen (Bulk) Edema Medium 11/02/2018 Metformin Hallucinations Medium 11/02/2018 Quinolones Edema Medium 11/02/2018 Sulfa (Sulfonamide Antibiotics) Rash Medium 10/23 Medications PROAIR HFA 90 mcg/actuation inhaler Inhale 2 puffs 3 9 Active betamethasone valerate (VALISONE) 0.1 % cream APPLY A THIN LAYER EVERY DAY TO THE AFFECTED AREA OF ARMS AND HANDS 6 9 Active lisinopril-hydr oCHLOROthiazide (PRINZIDE,ZESTO RETIC) 20-25 mg per tablet 9 Active montelukast (SINGULAIR) 10 mg tablet Take 1 tablet (10 mg total) by mouth daily 9 Active pravastatin (PRAVACHOL) 20 mg tablet Take 1 tablet (20 mg total) by mouth daily 3 9 Active SYMBICORT 160-4.5 mcg/actuation inhaler 9 Active Xarelto 20 mg tablet TAKE 1 TABLET BY MOUTH EVERY DAY 90 tablet 1 4 Active metoprolol XL (TOPROL-XL) 50 mg extended release tablet TAKE 1 TABLET BY MOUTH EVERY DAY 90 tablet 1 5 Active acetaminophen (TYLENOL) 500 mg tablet Take 1 tablet (500 mg total) by mouth every 6 (six) hours as needed for pain Active fluticasone propionate (FLONASE) 50 mcg/actuation nasal spray Administer 1 spray into each nostril daily Active gabapentin (NEURONTIN) 300 mg capsule TAKE 1 CAPSULE BY MOUTH EVERY 8 HOURS 4 Active glucosamine HCl 500 mg tablet Take by mouth Ac tive tamsulosin (FLOMAX) 0.4 mg extended release capsule 1 capsule (0.4 mg total) Active Trelegy Ellipta 200-62.5-25 mcg inhaler 1 puff daily 4 Active Active Problems Problem Noted Date Diagnosed Date Atrial fibrillation 11/02/2018 Chronic anticoagulation 11/02/2018 Morbid obesity with BMI of 50.0-59.9, adult 10/23 KAN on CPAP 11/02/2018 Occipital cerebral infarction 11/02/2018 Asthma 11/02/2018 Essential hypertension 11/02/2018 Allergic rhinitis 11/02/2018 Arthritis 11/02/2018 Goiter, 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 Encounters Date Type Department Care Team Description 06/26/2024 Orders Only [facility] Cardiology [address] [place] [phone] Codie Medellin MA 06/21/2024 3:15 PM SALES REPRESENTATIVE [employer] Office Visit [facility] Cardiology [address] [place] [address] Rickey Pinto MD Essential hypertension (Primary Dx); Permanent atrial fibrillation (HCC); Morbid obesity with BMI of 50.0-59.9, adult (HCC); KAN on CPAP from Last 3 Months Medical History Medical History Date Comments Hypertension Thyroid disease Stroke (HCC) Sleep apnea Asthma Arthritis Family History Medical History Relation Name Comments Heart failure Father mesothelioma Mother Relation Name Status Comments Father (Age 88) Mother (Age 79) Social History Tobacco Use Types Packs/Day Years Used Date Smoking Tobacco: Never Smokeless Tobacco: Never Tobacco Cessation:Counseling Given: Not Answered Alcohol Use Standard Drinks/Week Comments Yes 0 (1 standard drink = 0.6 oz pur e alcohol) AUDIT-C Answer Date Recorded Frequency of Alcohol Consumption 4 or more times a week 11/02/2018 Average Number of Drinks 1 or 2 07/11/2 019 Frequency of Binge Drinking Not on file 10/23 Sex and Gender Information Value Date Recorded Sex Assigned at Not on file Legal Sex Male 2:12 PM SALES REPRESENTATIVE [employer] Gender Identity Male 02/04/2021 4:02 PM CDT Sexual Orientation Straight 02/04/2021 4: 02 PM CDT Obstetrics History Last Filed Vital Signs Vital Sign Reading Time Taken Comments Blood Pressure 114/72 06/21/2024 3:32 PM SALES REPRESENTATIVE [employer] Pulse 69 06/21/2024 3:32 PM SALES REPRESENT[employer]IVE [employer] Temperature - - Respiratory Rate - - Oxygen Saturation 97% 06/21/2024 3:32 PM SALES REPRESENTATIVE [employer] Inhaled Oxygen Concentration - - Weight 163.8 kg (361 lb 1.6 oz) 06/21/2024 3:32 PM SALES REPRESENTATIVE [employer] Height 182.9 cm (6') 06/21/2024 3:32 PM SALES REPRESENTATIVE [employer] Body Mass Index 48.97 06/21/2024 3:32 PM SALES REPRESENT[employer]IVE [employer] Plan of Treatment Health Maintenance Due Date Last Done Comments Colon Cancer Screening-Colonoscopy 1950 Depression Screening 1950 Fall Risk Assessment 1950 Hepatitis C Screening 1950 DTaP/Tdap/Td Vaccine (1 - Tdap) 1962 Hepatitis B Screening 1969 Well Visit 65+ 2016 Pneumococcal vaccine 65+ (2 of 2 - PPSV23) 04/12/2018 02/15/2018 Zoster Vaccine (2 of 2) 02/26/2019 01/01/2019 Influenza Vaccine (#1) 2023 01/29/2018, 2016 Procedures Procedure Name Priority Date/Time Associated Diagnosis Comments POCT LIPID PANEL Routine 06/21/2024 3:51 PM SALES REPRESENTATIVE [employer] Essential hypertension from Last 3 Months Results * POCT lipid panel (06/21/2024 3:51 PM SALES REPRESENTATIVE [employer]) Cholesterol, POC 127 mg/dL Comment:GLU = 138 HDL, POC 41 mg/dL Triglycerides, POC 203 mg/dL LDL Cholesterol POC 46 mg/dL Chol/HDL Ratio, POC 1.1 Non-HDL Cholesterol, POC 86 mg/dL Cholesterol Total, POC 127 mg/dL Capillary blood 06/21/2024 3 :51 PM SALES REPRESENTATIVE [employer] us Rickey Pinto MD POINT OF CARE TEST ORDER DREW Final Result from Last 3 Months Insurance [employer] Care Teams Fuel Handler Relationship Specialty Start Date End Date Verena Jeong MD [facility] [place] [address] PCP - General Family Practice 06/21/24
--- OUTSIDE RECORDS SUMMARY | 2024-07-12 11:26 | XMS_ITS | Referral Summary ---
Author Organization [facility] [address] [facility] [facility] [address] [place] [address] Care Team Providers Care First Aid Officer Name Role Phone Verena Jeong MD Primary Care Provider Encounters Date Type Department Care Team Description 06/26/2024 Orders Only [facility] Cardiology [address] [place] [address] Codie Medellin MA 06/21/2024 3:15 PM PCMH SPECIALIST Office Visit [facility] Cardiology [address] [place] [address] Rickey Pinto MD Essential hypertension (Primary Dx); Permanent atrial fibrillation (HCC); Morbid obesity with BMI of 50.0-59.9, adult (HCC); KAN on CPAP from Last 3 Months Allergies Active Allergy Reactions Criticality Noted Date [...] oCHLOROthiazide (PRINZIDE,ZESTO RETIC) 20-25 mg per tablet 04/24/201 9 Active montelukast (SINGULAIR) 10 mg tablet [...] rhinitis 11/02/2018 Arthritis 11/02/2018 Goiter, 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 Social History Tobacco Use Types Packs/Day Years Used Date Smoking Tobacco: Never Smokeless Tobacco: Never Tobacco Cessation:Counseling Given: Not Answered Alcohol Use Standard Drinks/Week Comments Yes 0 (1 standard drink = 0.6 oz pur e alcohol) AUDIT-C Answer Date Recorded Frequency of Alcohol Consumption 4 or more times a week 11/02/2018 Average Number of Drinks 1 or 2 019 Frequency of Binge Drinking Not on file 10/23 Sex and Gender Information Value Date Recorded Sex Assigned at Not on file Legal Sex Male 2:12 PM PCMH SPECIALIST Gender Identity Male 02/04/2021 4:02 PM CDT Sexual Orientation Straight 02/04/2021 4: 02 PM CDT Last Filed Vital Signs Vital Sign Reading Time Taken Comments Blood Pressure 114/72 06/21/2024 3:32 PM PCMH SPECIALIST Pulse 69 06/21/2024 3:32 PM PCMH SPECIALIST Temperature - - Respiratory Rate - - Oxygen Saturation 97% 06/21/2024 3:32 PM PCMH SPECIALIST Inhaled Oxygen Concentration - - Weight 163.8 kg (361 lb 1.6 oz) 06/21/2024 3:32 PM PCMH SPECIALIST Height 182.9 cm (6') 06/21/2024 3:32 PM PCMH SPECIALIST Body Mass Index 48.97 06/21/2024 3:32 PM PCMH SPECIALIST Plan of Treatment Not on file Procedures Procedure Name Priority Date/Time Associated Diagnosis Comments POCT LIPID PANEL Routine 06/21/2024 3:51 PM PCMH SPECIALIST Essential hypertension from Last 3 Months Results * POCT lipid panel (06/21/2024 3:51 PM PCMH SPECIALIST) Cholesterol, POC 127 mg/dL Comment:GLU = 138 HDL, POC 41 mg/dL Triglycerides, POC 203 mg/dL LDL Cholesterol POC 46 mg/dL Chol/HDL Ratio, POC 1.1 Non-HDL Cholesterol, POC 86 mg/dL Cholesterol Total, POC 127 mg/dL Capillary blood 06/21/2024 3 :51 PM PCMH SPECIALIST Rickey Pinto MD POINT OF CARE TEST ORDER DREW Final Result from Last 3 Months Insurance [employer] [place] [id number] Care Teams First Aid Officer Relationship Specialty Start Date End Date Verena Jeong MD [facility] [facility] [address] [place] [address] PCP - General Family Practice 06/21/24
[2024-07-12 14:34] LABS: Alanine Aminotransferase 20 U/L (6-50); Albumin Level 4.4 g/dL (3.5-5.1); Alkaline Phosphatase 87 U/L (38-126); Anion Gap 13 mmol/L (4-12); Aspartate Amino Transferase 37 U/L (17-59); Bilirubin,Total 0.9 mg/dL (0.2-1.3); Blood Urea Nitrogen 27 mg/dL (9-20); Calcium 9.4 mg/dL (8.4-10.2); Carbon Dioxide 23 mmol/L (22-30); Chloride 104 mmol/L (98-107); Estimated Glomerular Filt Rate > 60; Glucose 126 mg/dL (65-110); Potassium 4.5 mmol/L (3.4-5.0); Sodium 140 mmol/L (137-145)
[2024-07-12 16:12] LABS: Hemoglobin A1C 7.2 % (<5.7)
== END 2024-07-12 10:41 | disposition home or self-care (01) ==
LOC: ANHGOSHLAB 10:41
PROVIDERS: PCP Family Medicine; Visit Provider Family Medicine
DX: I10 Essential (primary) hypertension (principal); E11.9 Type 2 diabetes mellitus without complications
CPT/HCPCS: 36415; 80053; 83036

== ENCOUNTER 2024-11-10 13:43 | Emergency (ER) | payer MEDICARE, SELFPAY ==
--- NOTE | ~2024-11-10 | XR_ITS ---
Left Knee Technique: AP, lateral, and sunrise views were obtained. Clinical History: Pain and swelling Findings: No fracture or dislocation is seen. Osseous alignment is anatomic. There is moderate tricom partmental degenerative joint disease. There is mild diffuse subcutaneous and soft tissue edema. No j oint effusion is seen. Impression: Moderate tricompartmental degenerative joint disease. Mild diffuse subcutaneous soft tissue edema, nonspecific. Reviewed, dictated and finalized at location M. Impression: Moderate tricompartmental degenerative joint disease. Mild diffuse subcutaneous soft tissue edema, nonspecific.
[2024-11-10 13:54] VITALS: BP 117/64; PULSE 85; RESP 16; TEMP 36.8; O2SAT 96
--- NOTE | 2024-11-10 14:03 | ED.LOWEXIN ---
HPI - Extremity Injury (Lower) General Chief Complaint: Extremity Injury, Lower Stated Complaint: left swollen/sore knee Time Seen by Provider: 11/10/24 13:55 Source: patient and RN notes reviewed Mode of arrival: ambulatory Limitations: no limitations History of Present Illness HPI Narrative: 74-year-old male Presents Express Care complaining of left knee pain. Patient reports developing left knee pain this morning. Patient denies any apparent injury to his left knee. Patient says he has severe arthritis to both of his knees. Patient denies any knee replacement or any surgeries. Patient said he was gout obstructive go to work he knows that the pain got worse in his left knee followed by swelling. Patient has been using a cane since the system self with ambulation. Patient is not taking anything [id number] to help with the pain. Patient denies any numbness, tingling, redness,, body aches, chills, nausea, vomiting or any other injuries. Patient has a history of AFib and anticoagulated with Xarelto. Related Data Home Medications ?Medication ?Instructions ?Recorded ?Confirmed ?Last Taken ?Type fluticasone propionate 50 1 spray intranasal DAILY 04/10/19 09/21/24 02/19/24 History mcg/actuation nasal spray,suspension (Allergy Relief (fluticasone)) glucosamine 375 [id number] 3 tablet PO DAILY 04/10/19 09/21/24 02/19/24 History no1 500 mg-C 15 mg-jazzy 0.5 mg tablet rivaroxaban 20 mg tablet (Xarelto) 20 mg PO QPM 04/10/19 09/21/24 02/17/24 History tamsulosin 0.4 mg capsule 0.4 mg PO DAILY 12/22/23 09/21/24 02/19/24 History acetaminophen 500 mg tablet 500 mg PO TID PRN Pain (Scale 08/16/24 09/21/24 Unknown History Score 1-3) gabapentin 300 mg capsule 300 mg PO Q8H 08/16/24 09/21/24 Unknown History Allergies Allergy/AdvReac Type Severity Reaction Status Date / Time aspirin Allergy Severe Swelling Verified 11/10/24 13:46 of Lip/Tongue/Throat hydrocodone Allergy Severe vomiting Verified 11/10/24 13:46 blood ibuprofen Allergy Severe Anaphylaxis Verified 11/10/24 13:46 ketoprofen Allergy Severe angioedema Verified 11/10/24 13:46 and diarrhea Quinolones Allergy Intermediate halucinatio Verified 11/10/24 13:46 ns Sulfa (Sulfonamide Allergy Intermediate Rash Verified 11/10/24 13:46 Antibiotics) sulfamethizole Allergy Intermediate Rash Verified 11/10/24 13:46 trimethoprim Allergy Intermediate Rash Verified 11/10/24 13:46 Review of Systems Review of Systems: CONSTITUTIONAL: Denies fever, chills, or sweats. EYES: Denies visual changes, redness, or discharge. ENT: Denies rhinorrhea, congestion, sore throat, or otalgia. CARDIOVASCULAR: Denies chest pain, palpitations, or edema. RESPIRATORY: Denies cough or dyspnea. GASTROINTESTINAL: Denies abdominal pain, nausea, vomiting, or diarrhea. GENITOURINARY: Denies dysuria or hematuria. SKIN: Denies rash, wound, or itching. MUSCULOSKELETAL: Denies back pain, joint pain, or myalgia. Positive for left knee pain and swelling NEUROLOGIC: Denies headache, numbness, or weakness. PSYCHIATRIC: Denies anxiety or depression. All other systems reviewed are negative, except as documented in HPI. [facility] Past Medical History Medical History BPH loc w/o ur obs/LUTS Dyslipidemia Neuropathy involving both lower extremities Chronic low back pain Obstructive sleep apnea on CPAP History of stroke with residual deficit (~09/2018) Testicular hypofunction Restless legs Paroxysmal atrial fibrillation Morbid (severe) obesity due to excess calories COPD with asthma Allergic rhinitis due to pollen Sepsis (~05/2021) Hypertension Leg cramps Hypogonadism Angioedema Associated with ASA and NSAIDs Type 2 diabetes mellitus without complication, without long-term current use of insulin Asthma CVA (cerebral vascular accident) September 2018 with residual vision loss Surgical History Surgical History History of squamous cell carcinoma excision (~08/2023) scalp Family History Family History Mother Mesothelioma Father Family history of congestive heart failure Social History Social History Social History: Patient lives with his Lena. He is a full code. He smoked cigars until about 1987. Smoked 1-2 cigars per week on occasion. No drug use. Drinks 2 alcoholic drinks per week. Smoking status: Former smoker Tobacco type: pipe and cigars Alcohol intake: current Drinks per week: 2 Alcohol use details: occasionally, beer Substance use: never Substance use type: does not use Do You Feel Safe in your Home?: Yes Lack of Transportation: No Lack of Food: Never True Current Housing: I Have Housing Concerned About Future Housing: No Difficulty Paying Gas/Electric Bills: No Difficulty Paying for Meds: No Currently Unemployed: No Education: Master's Degree or Higher Difficulty w/ Childcare or Family Care: No Living arrangements: with family Gender identity (if verbalized by the patient): Male Spiritual care concerns: No Comments At the time of my signature, I reviewed and agree with the nursing past medical, surgical, social, and family history. There is no relevant family history pertinent to the patient complaint. Exam Narrative: GENERAL: This is a well-nourished, well-developed adult, in no apparent distress. They are non ill-appearing, nontoxic appearing. Patient morbidly obese. Physical exam limited due to large body habitus. Patient is walking with a cane. HEAD: normocephalic, atraumatic. EYES: Sclera clear/white. Vision is grossly intact. Conjunctiva normal. Extraocular movement intact. EARS: External ears normal Hearing grossly intact. NOSE: External nose normal THROAT: Mucous membranes moist NECK: Neck supple CARDIOVASCULAR: Regular rate and rhythm RESPIRATORY: Respiratory rate normal, respiratory effort nonlabored, no respiratory distress NEURO: awake, alert, and oriented to person, place and time. There were no obvious focal neurologic abnormalities. EXTREMITIES: Left knee: No obvious deformity, injury, bruising, redness. There is swelling to left knee compared to right. No palpable cord. Limited range of motion due to pain. Pain elicited through knee flexion extension. No bony tenderness. No pain behind the knee. Capillary refill less than 3 seconds. Normal sensation. Neurovascular status intact distal injury. No valgus or varus laxity. BACK: Nontender without deformity. Course Course Emergency Course: Portions of this record may have been created with voice recognition software Level of Care: Express Care Visit Vital Signs Vital signs: Vital Signs Temperature 98.3 F 11/10/24 13:54 Pulse Rate 85 07/19/25 13:54 Respiratory Rate 16 11/10/24 13:54 Blood Pressure 117/64 11/10/24 13:54 Pulse Oximetry 96 11/10/24 13:54 Oxygen Delivery Room Air 11/10/24 13:54 Temperature 98.3 F 11/10/24 13:54 Pulse Rate 85 11/10/24 13:54 Respiratory Rate 16 11/10/24 13:54 Blood Pressure 117/64 11/10/24 13:54 Pulse Oximetry 96 11/10/24 13:54 Oxygen Delivery Room Air 11/10/24 13:54 Reviewed MDM - Extremity Injury (Lower) MDM Narrative Medical decision making narrative: X-ray left knee shows no evidence of fractures or acute findings. Moderate arthritis to left knee joint. Patient likely has arthritis flare up. No joint effusion appreciated on x-ray. Patient given Everett wrap and recommend conservative therapy. Discussed physical exam findings. Advised supportive measures and signs/symptoms to go to the ER. Pt is appropriate for outpt treatment and f/u. Differential Diagnosis Differential diagnosis: Likely other (Knee sprain, knee strain, arthritis, bursitis, knee effusion, knee fracture) Imaging Data Radiologist's impression: ITS Impressions Knee X-Ray 11/10/24 14:16 Impression: Moderate tricompartmental degenerative joint disease. Mild diffuse subcutaneous soft tissue edema, nonspecific. Critical Care Time Critical Care Time Critical Care Time: No Discharge Plan Discharge Clinical Impression: Arthritis of knee, left Patient Disposition: Home Condition: Stable Instructions: Knee Pain (ED) Additional Instructions: The x-ray of your left knee was negative for any fractures or acute findings. It should you have moderate arthritis to this knee joint. Rest and elevate the leg; bear weight as tolerated Apply ice 15-20 minute intervals several times a day Keep it wrapped with EVERETT or use a knee brace. Tylenol 1000mg every 6-8 hours as needed for pain. Do not exceed more than 4000 mg a day or 1000 mg a dose. Follow up with your primary care provider or your orthopedist and 1-2 weeks if pain persists. Patient Language: Hungarian Prescriptions: No Action albuterol sulfate 2.5 mg /3 mL (0.083 %) solution for nebulization 2.5 mg inhalation Q4-6H PRN (Reason: shortness of breath or wheezing) Qty: 75 3RF tamsulosin 0.4 mg capsule 0.4 mg PO DAILY gabapentin 300 mg capsule 300 mg PO Q8H metoprolol succinate 50 mg Tablet Extended Release 24 Hr 50 mg PO DAILY Qty: 30 0RF acetaminophen 500 mg tablet 500 mg PO TID PRN (Reason: Pain (Scale Score 1-3)) fluticasone propionate [Allergy Relief (fluticasone)] 50 mcg/actuation spray,suspension 1 spray NASAL DAILY [id number] mg tablet 3 tablet PO DAILY Xarelto 20 mg tablet 20 mg PO QPM albuterol sulfate 90 mcg/actuation HFA aerosol inhaler 2 puff INHALATION Q4H PRN (Reason: shortness of breath or wheezing) Qty: 6.7 11RF betamethasone valerate 0.1 % cream 1 applic TOPICAL DAILY PRN (Reason: skin irritation) Qty: 45 4RF Rx Instructions: apply a thin layer by topical route every day to the affected area arms and hands Trelegy Ellipta 200-62.5-25 mcg blister with device 1 inh inhalation DAILY Qty: 180 3RF Rx Instructions: Rinse mouth and spit after each use lisinopril-hydrochlorothiazide 20-25 mg tablet 1 tablet PO DAILY Qty: 100 1RF montelukast 10 mg tablet 10 mg PO DAILY Qty: 90 1RF pravastatin 20 mg tablet 20 mg PO QHS Qty: 90 1RF Follow-up/Referrals: Leno Jeong MD [Primary Care Provider] - Time of Disposition: 14:28
== END 2024-11-10 14:32 | disposition home or self-care (01) ==
PROVIDERS: PCP Family Medicine
DX: M17.12 Unilateral primary osteoarthritis, left knee (principal); I48.0 Paroxysmal atrial fibrillation; I10 Essential (primary) hypertension; J44.9 Chronic obstructive pulmonary disease, unspecified; E11.9 Type 2 diabetes mellitus without complications; Z86.73 Personal history of transient ischemic attack (TIA), and cerebral infarction without residual deficits; Z87.891 Personal history of nicotine dependence
CPT/HCPCS: 73564; 99213; G0463

== ENCOUNTER → 2025-01-17 11:00 | Outpatient (CLI) | payer MEDICARE, SELFPAY ==
--- NOTE | ~2025-01-17 | XR_ITS ---
XR cervical spine min 6V Indication: neuropathy months worse few days, no injury Comparison: None Findings: Grade 1 anterolisthesis C4 on C5, no fracture. Moderate loss of disc height C4-5 C5-6 and C6-7 with narrowing of the foramina at these levels Soft tissues unremarkable Impression: No acute abnormality. Reviewed, dictated and finalized at location A. Impression: No acute abnormality.
== END ==
PROVIDERS: PCP Family Medicine; Visit Provider Nurse Practitioner Family
DX: M54.2 Cervicalgia (principal)
CPT/HCPCS: 72052

== ENCOUNTER 2025-01-31 11:26 | Outpatient (CLI) | payer MEDICARE, SELFPAY ==
--- NOTE | ~2025-01-31 | XR_ITS ---
XR lumbar spine 6V w bending Indication: M54.50 - Low back pain, unspecified, x 3 months Comparison: None Findings: Grade 1 anterolisthesis L5 on S1, bilateral spondylolytic defects, no fracture identified. Moderate to severe loss of disc height throughout, no subluxation flexion and extension Soft tissues unremarkable Impression: No acute abnormality. Reviewed, dictated and finalized at location P. Impression: No acute abnormality.
--- NOTE | ~2025-01-31 | XR_ITS ---
XR thoracic spine 2V Indication: low back pain x 3 months Comparison: None Findings: The vertebral heights are intact. No fracture or subluxation. The disc heights are intact. Soft tissues unremarkable Impression: No acute abnormality. Reviewed, dictated and finalized at location P. Impression: No acute abnormality.
== END 2025-01-31 11:27 | disposition home or self-care (01) ==
LOC: GOSHIMG 11:26
PROVIDERS: PCP Family Medicine; Visit Provider Nurse Practitioner Family
DX: M43.17 Spondylolisthesis, lumbosacral region (principal); M51.360 Other intervertebral disc degeneration, lumbar region with discogenic back pain only; G89.29 Other chronic pain; M54.31 Sciatica, right side
CPT/HCPCS: 72070; 72114